=== PATIENT | male | born 1930 | race Caucasian/White ===

== ENCOUNTER → 2020-01-05 | Emergency (ER) | payer OTHER, MEDICARE, BC ==
[~2020-01-05] VITALS: Ht 170.2 cm; Wt 64.4 kg
[~2020-01-05] MED LIST: TETanus/Pertussis (Acell)/Diphther VAC/PF (Tdap-Adult) 0.5ml syringe IMVAC ONE
[2020-01-05 23:06] VITALS: BP 140/74
== END | disposition home or self-care (01) ==
LOC: ER 20:56
DX: S09.90XA Unspecified injury of head, initial encounter (principal); S00.01XA Abrasion of scalp, initial encounter; S50.312A Abrasion of left elbow, initial encounter; W19.XXXA Unspecified fall, initial encounter; Y93.89 Activity, other specified; Y92.89 Other specified places as the place of occurrence of the external cause; Y99.8 Other external cause status
CPT/HCPCS: 90471; 90715; 99284

== ENCOUNTER 2020-07-12 15:35 | Emergency (ER) | payer OTHER, MEDICARE, BC ==
[~2020-07-12] VITALS: Ht 170.2 cm; Wt 65.9 kg
[2020-07-12 15:45] VITALS: BP 133/68
[2020-07-12] MEDS ORDERED: LIDOcaine 1.5% w/epinephrine 1:200,000 5ml ampul IJ ONE (16:00)
[2020-07-12] MEDS ORDERED: LIDOcaine 1% W/epiNEPHrine 1:200,000 10ml vial IJ ONE (16:20)
== END 2020-07-12 16:56 | disposition home or self-care (01) ==
LOC: ER 15:35
DX: S01.01XA Laceration without foreign body of scalp, initial encounter (principal); S60.221A Contusion of right hand, initial encounter; G20 Parkinson's disease; W18.39XA Other fall on same level, initial encounter; Y93.89 Activity, other specified; Y92.89 Other specified places as the place of occurrence of the external cause; Y99.8 Other external cause status
CPT/HCPCS: 12002; 70450; 99284

== ENCOUNTER 2021-01-31 12:24 | Inpatient (IN) | payer OTHER, MEDICARE, BC ==
[~2021-01-31] VITALS: Ht 165.1 cm; Wt 67.0 kg
[2021-01-31] MEDS ORDERED: ondansetron/PF 4mg/2ml inj IV ONE (12:25)
[2021-01-31] MEDS ORDERED: morphine 4 MG/ML inj SYRINge IV ONE (12:25)
[2021-01-31 12:47] LABS: BASOPHILS % (AUTO) 0.4 % (0-1); EOSINOPHILS # (AUTO) 0.2 X10'3 (0-0.9); EOSINOPHILS % (AUTO) 2.3 % (0-6); HEMATOCRIT 39.8 % (42.0-52.0); HEMOGLOBIN 13.1 g/dl (14.0-17.9); LYMPHOCYTES % (AUTO) 14.3 % (21-51); MEAN CORPUSCULAR HEMOGLOBIN 31.1 PG (27.0-31.0); MEAN CORPUSCULAR VOLUME 94.4 FL (78-98); MEAN PLATELET VOLUME 7.6 FL (7.4-10.4); MONOCYTES # (AUTO) 0.5 X10'3 (0-0.9); MONOCYTES % (AUTO) 7.4 % (2-12); NEUTROPHILS # (AUTO) 5.3 X10'3 (1.8-7.7); NEUTROPHILS % (AUTO) 75.6 % (42-75); PLATELET COUNT 242 X10'3 (140-440); RED BLOOD COUNT 4.21 X10'6 (4.70-6.10); RED CELL DISTRIBUTION WIDTH 15.4 % (11.5-14.5)
[2021-01-31 13:07] LABS: ALANINE AMINOTRANSFERASE 11 U/L (12-78); ALBUMIN 3.2 G/DL (3.4-5.0); ALBUMIN/GLOBULIN RATIO 0.8 (1.1-1.5); ALKALINE PHOSPHATASE 88 IU/L (46-116); ANION GAP 7 (8-16); ASPARTATE AMINO TRANSFERASE 11 U/L (10-37); BILIRUBIN,TOTAL 0.5 MG/DL (0.1-1.0); BLOOD UREA NITROGEN 21 MG/DL (7-18); BUN/CREATININE RATIO 20.8 (5.4-32.0); CALCIUM 8.6 MG/DL (8.5-10.1); CHLORIDE 108 MMOL/L (99-107); CREATININE 1.01 MG/DL (0.60-1.10); GLUCOSE 97 MG/DL (70-104); POTASSIUM 4.1 MMOL/L (3.5-5.1); SODIUM 144 MMOL/L (135-145); TOTAL CARBON DIOXIDE 29.5 MMOL/L (24-32); TOTAL PROTEIN 7.4 G/DL (6.4-8.2); eGFR 70 ML/MIN
[2021-01-31] MEDS ORDERED: LIDOcaine 2% 10ml TOPICAL JELLY (Urojet) TP ONE (13:40)
[2021-01-31] MEDS ORDERED: potassium Cl 20 mEq SR tablet PO PRN ×2 (13:50)
[2021-01-31] MEDS ORDERED: magnesium 2GM in 50ml NS 50 ML IV PRN (13:50)
[2021-01-31] MEDS ORDERED: ipratropium/albuterol 3ml nebule NEB PRN (13:50)
[2021-01-31] MEDS ORDERED: magnesium Cl slow-release 64mg tablet PO PRN (13:50)
[2021-01-31] MEDS ORDERED: potassium Cl 40MEQ/1/2NS 520ml 520 ML IV PRN ×2 (13:50)
[2021-01-31] MEDS: normal saline 1000ml 1,000 ML IV SCH (13:50)
[2021-01-31] MEDS ORDERED: ondansetron/PF 4mg/2ml inj IV PRN (13:50)
[2021-01-31] MEDS ORDERED: magnesium 4gm in 100ml NS 100 ML IV PRN (13:50)
[2021-01-31 14:05] LABS: CLARITY,URINE CLEAR (Clear); COLOR,URINE YELLOW (Yellow); GLUCOSE, URINE NEGATIVE (Neg); KETONES,URINE NEGATIVE (Neg); LEUKOCYTE ESTERASE ,URINE NEGATIVE (Neg); NITRITES, URINE NEGATIVE (Neg); OCCULT BLOOD,URINE NEGATIVE (Neg); PH,URINE 6.5 (4.8-8.0); PROTEIN,URINE NEGATIVE (Neg); UROBILINOGEN,URINE 0.2 E.U/dL (0.2-1.0)
[2021-01-31 14:10] LABS: UA COLLECTION TYPE FOLEY CATH
[2021-01-31] MEDS ORDERED: FLUD0.1T PO (14:12)
[2021-01-31] MEDS ORDERED: CARB1TAB24 PO (14:12)
[2021-01-31] MEDS ORDERED: POTA99TA18 PO (14:12)
[2021-01-31] MEDS ORDERED: MELA10TA2 PO (14:12)
[2021-01-31] MEDS ORDERED: SENN-263 PO (14:12)
[2021-01-31] MEDS ORDERED: FERR-39 PO (14:12)
[2021-01-31] MEDS ORDERED: CYCL5TAB PO (14:12)
[2021-01-31] MEDS ORDERED: FLUT1DIS20 INH (14:12)
[2021-01-31] MEDS ORDERED: DOCU250C96 PO (14:12)
[2021-01-31] MEDS ORDERED: VIT1CAPS6 PO (14:12)
[2021-01-31] MEDS ORDERED: [UNRECOGNIZED DRUG - CODE] PO (14:12)
[2021-01-31] MEDS ORDERED: XAL0.005OS EACHEYE (14:12)
[2021-01-31] MEDS ORDERED: POLY119P2 PO (14:12)
[2021-01-31] MEDS ORDERED: cyclobenzaprine 10mg tablet PO PRN (14:25)
[2021-01-31] MEDS ORDERED: albuterol 2.5 MG/3 ML nebule NEB SCH (14:25)
[2021-01-31] MEDS: HYDROmorphone inj. 0.5 MG/0.5 ML DISP.SYRIN IV PRN ×2 (15:27→21:16)
--- NOTE | 2021-01-31 16:00 | NUR ---
Patient in room ORTHO 4014. I have received report from DEEDEE MISM and had the opportunity to ask questions and assume patient care.
[2021-01-31 17:01] VITALS: BP 116/64
[2021-01-31] MEDS: carbidoba-levodopa 25-100mg tablet PO SCH ×2 (17:13→21:15)
[2021-01-31 18:00] VITALS: BP 113/64
--- NOTE | 2021-01-31 18:12 | NUR ---
Problems reprioritized. Patient report given, questions answered & plan of care reviewed with TING MIMS.
[2021-01-31] MEDS: K and/or MAG REPLACEMENT MC SCH (20:00)
[2021-01-31] MEDS ORDERED: budesonide 0.5mg/2ml UD nebule IH SCH (20:00)
[2021-01-31] MEDS ORDERED: docusate sod 100mg capsule PO SCH (20:00)
[2021-01-31] MEDS: enoxaparin 40mg/0.4ml syringe SQ SCH (20:00)
[2021-01-31] MEDS: budesonide 0.5mg/2ml UD nebule IH SCH (20:59)
[2021-01-31] MEDS: albuterol 2.5 MG/3 ML nebule NEB SCH (21:00)
[2021-01-31] MEDS: sennosides 8.6mg tablet PO SCH (21:14)
[2021-01-31] MEDS: Melatonin 3mg tablet PO SCH (21:14)
[2021-01-31] MEDS: docusate sod 250mg capsule PO SCH (21:14)
[2021-01-31] MEDS: beta-carotene(A) w/C & E + minerals tab PO SCH (21:16)
[2021-01-31] MEDS: latanoprost 0.005% 2.5ml ophthalmic drops EACHEYE SCH (21:16)
[2021-01-31 22:00] VITALS: BP 115/58
[2021-02-01] VITALS (19 sets, daily range): BP systolic 93–150; BP diastolic 49–73
[2021-02-01] MEDS: HYDROmorphone inj. 0.5 MG/0.5 ML DISP.SYRIN IV PRN ×4 (01:42→23:21)
[2021-02-01] MEDS: normal saline 1000ml 1,000 ML IV SCH (02:28)
[2021-02-01] MEDS ORDERED: LORazepam 2 mg/ml vial IV ONE (06:20)
--- NOTE | 2021-02-01 06:30 | NUR ---
CONTACTED DR JAMESON REGARDING PT'S HR OF 120-140 AND AGITATION. RECEIVED ORDER FOR ATIVAN 1MG IV.
--- NOTE | 2021-02-01 06:40 | NUR ---
Patient in room ORTHO 4014. I have received report from Radha MIMS and had the opportunity to ask questions and assume patient care.
--- NOTE | 2021-02-01 06:41 | NUR ---
Patient very agitated, in AFIB with rates in the 140s at times. Dilaudid IV given for pain. Heart rate trending down, 2 liters of oxygen applied due to desaturating in the 80s. Tele called and stated patient was back in sinus rhythm, has no history afib.
--- NOTE | 2021-02-01 06:49 | NUR ---
Problems reprioritized. Patient report given, questions answered & plan of care reviewed with FELICITA GARCIA.
[2021-02-01] MEDS: albuterol 2.5 MG/3 ML nebule NEB SCH ×4 (07:00→19:12)
[2021-02-01 07:15] LABS: BASOPHILS % (AUTO) 0.2 % (0-1); EOSINOPHILS # (AUTO) 0.3 X10'3 (0-0.9); EOSINOPHILS % (AUTO) 2.2 % (0-6); HEMATOCRIT 38.3 % (42.0-52.0); HEMOGLOBIN 12.8 g/dl (14.0-17.9); LYMPHOCYTES # (AUTO) 0.8 X10'3 (1.1-4.8); LYMPHOCYTES % (AUTO) 6.9 % (21-51); MEAN CORPUSCULAR HEMOGLOBIN 30.9 PG (27.0-31.0); MEAN CORPUSCULAR HGB CONC 33.3 g/dL (33.0-36.5); MEAN CORPUSCULAR VOLUME 92.8 FL (78-98); MONOCYTES # (AUTO) 1.1 X10'3 (0-0.9); MONOCYTES % (AUTO) 9.8 % (2-12); NEUTROPHILS # (AUTO) 9.1 X10'3 (1.8-7.7); NEUTROPHILS % (AUTO) 80.9 % (42-75); PLATELET COUNT 215 X10'3 (140-440); RED BLOOD COUNT 4.13 X10'6 (4.70-6.10); RED CELL DISTRIBUTION WIDTH 15.4 % (11.5-14.5); WHITE BLOOD COUNT 11.2 X10'3 (4.5-11.0)
[2021-02-01] MEDS ORDERED: acetaminophen 1,000mg/100ml IV 100 ML IV PRN (07:15)
[2021-02-01] MEDS ORDERED: ondansetron/PF 4mg/2ml inj IV PRN (07:15)
[2021-02-01] MEDS ORDERED: meperidine/PF 25mg/ml syringe IV PRN ×2 (07:15)
[2021-02-01] MEDS ORDERED: hydrALAZINE 20mg/ml inj. IV PRN (07:15)
[2021-02-01] MEDS ORDERED: morphine 4 MG/ML inj SYRINge IV PRN (07:15)
[2021-02-01] MEDS ORDERED: ringers solution, lacted 1,000 ML IV SCH (07:15)
[2021-02-01] MEDS ORDERED: morphine 2 MG/ML inj. syringe IV PRN (07:15)
[2021-02-01] MEDS ORDERED: proCHLORperazine 10 MG/2 ml inj IV PRN (07:15)
[2021-02-01] MEDS ORDERED: labetalol 20mg/4ml (5mg/ml) syringe IV PRN (07:15)
--- NOTE | 2021-02-01 07:18 | NUR ---
Called Aicha MIMS in Recovery room to give report on the patient
--- NOTE | 2021-02-01 07:19 | NUR ---
Patient sent to OR in the bed with no complications. Darron Padilla is present at bedside and followed them downstairs.
[2021-02-01] MEDS ORDERED: fentaNYL/PF 50MCG/1 ML 2ML syringe ONE (07:28)
[2021-02-01] MEDS ORDERED: midazolam 1 mg/ML 2ml injection ONE (07:29)
[2021-02-01] MEDS ORDERED: LIDOcaine 1% (10mg/ml) 2ml vial ONE (07:29)
[2021-02-01] MEDS ORDERED: sevoflurane 250ml liquid IH ONE (07:31)
[2021-02-01 07:42] LABS: ALANINE AMINOTRANSFERASE 8 U/L (12-78); ALBUMIN 2.9 G/DL (3.4-5.0); ALBUMIN/GLOBULIN RATIO 0.8 (1.1-1.5); ALKALINE PHOSPHATASE 99 IU/L (46-116); ANION GAP 9 (8-16); ASPARTATE AMINO TRANSFERASE 14 U/L (10-37); BILIRUBIN,TOTAL 0.7 MG/DL (0.1-1.0); BLOOD UREA NITROGEN 21 MG/DL (7-18); BUN/CREATININE RATIO 23.6 (5.4-32.0); CALCIUM 8.2 MG/DL (8.5-10.1); CHLORIDE 109 MMOL/L (99-107); CREATININE 0.89 MG/DL (0.60-1.10); GLUCOSE 99 MG/DL (70-104); POTASSIUM 4.1 MMOL/L (3.5-5.1); SODIUM 142 MMOL/L (135-145); TOTAL PROTEIN 6.6 G/DL (6.4-8.2); eGFR 81 ML/MIN
[2021-02-01] MEDS: beta-carotene(A) w/C & E + minerals tab PO SCH ×2 (08:00→20:36)
[2021-02-01] MEDS: fludrocortisone acetate 0.1mg tablet PO SCH (08:00)
[2021-02-01] MEDS: polyethylene glycol 3350 17gm powd pack PO SCH (08:00)
[2021-02-01] MEDS: cholecalciferol (vitamin D3) 1,000 unit (25mcg) tablet PO SCH (08:00)
[2021-02-01] MEDS ORDERED: non-formulary drug (Potassium Gluconate 99 MG) PO SCH (08:00)
[2021-02-01] MEDS: ferrous sulfate 325mg tablet PO SCH (08:00)
[2021-02-01] MEDS: docusate sod 250mg capsule PO SCH ×2 (08:00→20:00)
[2021-02-01] MEDS: K and/or MAG REPLACEMENT MC SCH ×2 (08:00→20:00)
[2021-02-01] MEDS: carbidoba-levodopa 25-100mg tablet PO SCH ×4 (08:00→20:36)
[2021-02-01] MEDS: budesonide 0.5mg/2ml UD nebule IH SCH ×2 (08:14→19:12)
[2021-02-01] MEDS ORDERED: dexamethasone sod phosphate 4mg/ml inj. ONE (08:17)
[2021-02-01] MEDS ORDERED: ondansetron/PF 4mg/2ml inj ONE (08:17)
[2021-02-01] MEDS ORDERED: 0.9 % SODIUM CHLORIDE 10 ML VIAL ONE (08:17)
[2021-02-01] MEDS ORDERED: albumin (Human) 5% 250ml 250 ML IV ONE (08:17)
[2021-02-01] MEDS ORDERED: propofol inj 20 ML IV ONE (08:17)
[2021-02-01] MEDS ORDERED: ceFAZolin 1000mg inj ONE ×2 (08:17)
[2021-02-01] MEDS ORDERED: rocuronium 10mg/ml inj IV ONE (08:17)
[2021-02-01] MEDS ORDERED: ePHEDrine 50MG/ML INJ. ONE (08:17)
[2021-02-01] MEDS ORDERED: LIDOcaine 2% (20mg/ml) 5ml vial ONE (08:17)
[2021-02-01] MEDS ORDERED: neostigmine methylsulfate 1 MG/ML 10ml vial ONE (08:46)
[2021-02-01] MEDS ORDERED: glycopyrrolate 0.2mg/ml inj ONE (08:46)
[2021-02-01] MEDS ORDERED: phenylephrine 10mg/ml inj. ONE (08:52)
[2021-02-01] MEDS ORDERED: HYDROcodone/acetaminophen 10/325mg tab PO PRN (09:00)
[2021-02-01] MEDS: meperidine/PF 25mg/ml syringe IV PRN ×2 (09:13→09:23)
--- NOTE | 2021-02-01 09:37 | NUR ---
Received report from Cathi REYNA RN.
--- NOTE | 2021-02-01 10:07 | NUR ---
PATIENT HAS MET ALL CRITERIA FOR TRANSFER TO THE SURGICAL/DIVINE/PCU/ORTHO/ICU FLOOR. VSS. DRESSINGS INTACT. BED LOW, CALL LIGHT PRESENT AND 2 RAILS UP. RN PRESENT TO ACCEPT CARE OF PATIENT AND REPORT HAS BEEN CALLED. ALL QUESTIONS ANSWERED TO ACCEPTING RN. Addendum: 02/01/21 at 1015 by Kirby Jessica - FELICITA RN Amended: Links added.
--- NOTE | 2021-02-01 15:20 | NUR ---
PAGER ID: [phone] MESSAGE: [phone], Jose Daniel. Son provided me with med list from [facility] and his neurologist faxed me his most recent progress note which does say he is supposed to be on sinemet 25-100 QID and 50-200 ER at night time. leena [phone]
--- NOTE | 2021-02-01 15:22 | NUR ---
Spoke with son this morning about the patients sinemet dosage. He stated he recently saw his neurologist and that she wanted it increased. Son provided me with [facility] print out of medications and also Dr. Tan office faxed me his most recent progress note which has the correct sinemet dosages on it. Paged Dr. Miller regarding this and got the correct medications ordered.
[2021-02-01] MEDS: ceFAZolin/D5W- 1GM premix 50 ML IV SCH ×2 (15:36→23:21)
--- NOTE | 2021-02-01 16:52 | NUR ---
I was unable to give the patient his 1300 dose of sinemet due to the fact that he was so somulent post operatively. I ended up giving it to him at 1530, 1700 dose is due now and he is too somulent to take after just getting pain medications. He also had some difficulty swallowing and had coughed with water and his pills, speech therapy consult ordered.
--- NOTE | 2021-02-01 18:16 | NUR ---
Problems reprioritized. Patient report given, questions answered & plan of care reviewed with Pamella MIMS.
--- NOTE | 2021-02-01 18:45 | NUR ---
Patient in room ORTHO 4007. I have received report from Josie MIMS and had the opportunity to ask questions and assume patient care.
[2021-02-01] MEDS: sennosides 8.6mg tablet PO SCH (20:35)
[2021-02-01] MEDS: Melatonin 3mg tablet PO SCH (20:36)
[2021-02-01] MEDS: carbidopa/levodopa 50/200mg CR tablet PO SCH (20:36)
[2021-02-01] MEDS: enoxaparin 40mg/0.4ml syringe SQ SCH (20:36)
[2021-02-01] MEDS: latanoprost 0.005% 2.5ml ophthalmic drops EACHEYE SCH (20:37)
[2021-02-02] VITALS (14 sets, daily range): BP systolic 75–115; BP diastolic 45–65
[2021-02-02] MEDS ORDERED: digoxin 250mcg/ml 2ml ampule IV ONE ×3 (03:00→21:00)
--- NOTE | 2021-02-02 06:19 | NUR ---
Problems reprioritized. Patient report given, questions answered & plan of care reviewed with Josie MIMS.
--- NOTE | 2021-02-02 06:27 | NUR ---
Patient in room ORTHO 4007. I have received report from Pamella MIMS and had the opportunity to ask questions and assume patient care.
[2021-02-02 06:39] LABS: BASOPHILS % (AUTO) 0.3 % (0-1); EOSINOPHILS # (AUTO) 0.2 X10'3 (0-0.9); EOSINOPHILS % (AUTO) 1.6 % (0-6); HEMATOCRIT 31.4 % (42.0-52.0); HEMOGLOBIN 10.3 g/dl (14.0-17.9); LYMPHOCYTES # (AUTO) 0.8 X10'3 (1.1-4.8); LYMPHOCYTES % (AUTO) 7.1 % (21-51); MEAN CORPUSCULAR HGB CONC 32.7 g/dL (33.0-36.5); MEAN CORPUSCULAR VOLUME 94.8 FL (78-98); MEAN PLATELET VOLUME 7.8 FL (7.4-10.4); MONOCYTES # (AUTO) 1.2 X10'3 (0-0.9); MONOCYTES % (AUTO) 10.9 % (2-12); NEUTROPHILS # (AUTO) 8.9 X10'3 (1.8-7.7); NEUTROPHILS % (AUTO) 80.1 % (42-75); PLATELET COUNT 190 X10'3 (140-440); RED BLOOD COUNT 3.31 X10'6 (4.70-6.10); RED CELL DISTRIBUTION WIDTH 15.8 % (11.5-14.5); WHITE BLOOD COUNT 11.1 X10'3 (4.5-11.0)
[2021-02-02 06:57] LABS: ALANINE AMINOTRANSFERASE 6 U/L (12-78); ALBUMIN 2.4 G/DL (3.4-5.0); ALBUMIN/GLOBULIN RATIO 0.7 (1.1-1.5); ALKALINE PHOSPHATASE 76 IU/L (46-116); ANION GAP 9 (8-16); ASPARTATE AMINO TRANSFERASE 19 U/L (10-37); BILIRUBIN,TOTAL 0.7 MG/DL (0.1-1.0); BLOOD UREA NITROGEN 23 MG/DL (7-18); BUN/CREATININE RATIO 25.3 (5.4-32.0); CALCIUM 8.1 MG/DL (8.5-10.1); CHLORIDE 110 MMOL/L (99-107); CREATININE 0.91 MG/DL (0.60-1.10); GLUCOSE 102 MG/DL (70-104); MAGNESIUM 1.8 MG/DL (1.5-2.4); POTASSIUM 4.2 MMOL/L (3.5-5.1); SODIUM 144 MMOL/L (135-145); TOTAL CARBON DIOXIDE 24.7 MMOL/L (24-32); TOTAL PROTEIN 5.7 G/DL (6.4-8.2); eGFR 79 ML/MIN
[2021-02-02] MEDS: albuterol 2.5 MG/3 ML nebule NEB SCH ×5 (07:00→18:57)
[2021-02-02] MEDS: budesonide 0.5mg/2ml UD nebule IH SCH ×3 (07:47→18:57)
[2021-02-02] MEDS: K and/or MAG REPLACEMENT MC SCH ×2 (08:00→20:00)
[2021-02-02] MEDS: docusate sod 250mg capsule PO SCH ×2 (08:00→20:01)
[2021-02-02] MEDS: ceFAZolin/D5W- 1GM premix 50 ML IV SCH ×2 (08:38→15:59)
[2021-02-02] MEDS: cholecalciferol (vitamin D3) 1,000 unit (25mcg) tablet PO SCH (08:38)
[2021-02-02] MEDS: fludrocortisone acetate 0.1mg tablet PO SCH (08:38)
[2021-02-02] MEDS: carbidoba-levodopa 25-100mg tablet PO SCH ×4 (08:38→22:50)
[2021-02-02] MEDS: ferrous sulfate 325mg tablet PO SCH (08:38)
[2021-02-02] MEDS: beta-carotene(A) w/C & E + minerals tab PO SCH ×2 (08:38→19:39)
[2021-02-02] MEDS: polyethylene glycol 3350 17gm powd pack PO SCH (08:38)
[2021-02-02] MEDS: HYDROcodone/acetaminophen 5mg/325mg tablet PO PRN (09:12)
[2021-02-02] MEDS: fluticasone nasal spray 16GM bottle NS SCH (11:06)
--- NOTE | 2021-02-02 14:00 | NUR ---
Patient was calling out to get help because he spilt his water. When i helped him change his gown i realized his phototypesetting equipment monitor was off. Dr. Miller gave me orders 02/01 to keep the phototypesetting equipment monitor on, which i put an order in for. For some reason the heart monitor got taken off. When it was put back on the patient was noted to be in atrial fibrilation with rapid ventricular rate in the 150s-160s. Sent page to Dr. Miller and got orders for digoxin.
--- NOTE | 2021-02-02 14:54 | NUR ---
Nutrition Consult "elderly male, hx Parkinson's, eating poorly s/p hip surgery": Pt admit DX L hip fx s/p OR repair this admit, COPD, afib RVR, and Parkinson's currently AOx2/confused w/ hx memory issues past few years per EMR. PO ~25% avg initial clear liquid diet w/ swallowing issues per RN today advanced to full liquids w/ assistance at meals per FORMS ANALYST BSS recs. PO 25% first full liquid meal at lunch today per EMR. RD d/w RN; recommends Ensure Enlive ONS TIDWM for additional protein/kcals while on restrictive diet. Receiving routine bowel care, MVI, and vitamin D3 post-op. LBM 01/30. Will monitor for further nutrition intervention needs this admit. Rec: 1. continue full liquid diet per FORMS ANALYST recs; advance as medically indicated to regular per FORMS ANALYST/DO; encourage PO 2. Ensure Enlive TIDWM; encourage PO 3. MVI for wound healing 4. routine bowel care 5. scaled wt this admit; subsequent weekly wts Addendum: 02/02/21 at [address] Amended: Links added.
--- NOTE | 2021-02-02 14:57 | NUR ---
PAGER ID: [phone] MESSAGE: [phone] Jose Daniel, patient converted back into atrial fibrilation with a rate in the 140s. BP is 95/65. Josie [phone]
[2021-02-02] MEDS ORDERED: amiodarone 150mg/dext, iso-os 100 ML IV ONE (16:20)
[2021-02-02] MEDS: HYDROmorphone inj. 0.5 MG/0.5 ML DISP.SYRIN IV PRN (16:23)
--- NOTE | 2021-02-02 16:49 | NUR ---
Patient is to transfer to telemetry to be put on an amiodarone drip as he is hypotensive and still in atrial fib with RVR. Per nursing supervisor painting shipyard there are no beds available until after change of shift.
--- NOTE | 2021-02-02 17:03 | NUR ---
PAGER ID: [phone] MESSAGE: [phone], Jose Daniel METCALF total urine out for this shift is 360mls, just making the 30mls/hr his IVF were discontinued, do you want him on some?. He will go down to PCU after change of shift. leena [phone]
[2021-02-02] MEDS: normal saline 1000ml 1,000 ML IV SCH (17:05)
[2021-02-02] MEDS: lactose-reduced food (Ensure Enlive) - 237ml bottle PO SCH (18:00)
--- NOTE | 2021-02-02 18:15 | NUR ---
Patient in room ORTHO 4007. I have received report from Josie MIMS and had the opportunity to ask questions and assume patient care.
--- NOTE | 2021-02-02 18:31 | NUR ---
Problems reprioritized. Patient report given, questions answered & plan of care reviewed with Pamella MIMS.
--- NOTE | 2021-02-02 18:58 | NUR ---
Problems reprioritized. Patient report given, questions answered & plan of care reviewed with Giovanna MIMS pt transfer to tele.
--- NOTE | 2021-02-02 19:20 | NUR ---
Pt arrived via bed fr/OrthoNeuro in no acute distress. Bedside monitor set up and applied. Afib rate noted to be in the 130s to 150s, BP 101/57, O2 Sat: 96%, RR: 18.
--- NOTE | 2021-02-02 19:20 | NUR ---
Patient in room PCU 3023. I have received report from Pamella MIMS and had the opportunity to ask questions and assume patient care.
[2021-02-02] MEDS: HYDROcodone/acetaminophen 10/325mg tab PO PRN (19:40)
[2021-02-02] MEDS: enoxaparin 40mg/0.4ml syringe SQ SCH (19:41)
[2021-02-02] MEDS: amiodarone/D5 360MG/200ML BAG 200 ML IV SCH (20:33)
[2021-02-02] MEDS: sennosides 8.6mg tablet PO SCH (22:49)
[2021-02-02] MEDS: latanoprost 0.005% 2.5ml ophthalmic drops EACHEYE SCH (22:49)
[2021-02-02] MEDS: Melatonin 3mg tablet PO SCH (22:51)
[2021-02-02] MEDS: carbidopa/levodopa 50/200mg CR tablet PO SCH (22:53)
[2021-02-03] VITALS (14 sets, daily range): BP systolic 78–143; BP diastolic 45–111
[2021-02-03] MEDS: HYDROcodone/acetaminophen 10/325mg tab PO PRN (00:33)
[2021-02-03] MEDS: HYDROmorphone inj. 0.5 MG/0.5 ML DISP.SYRIN IV PRN (01:34)
[2021-02-03] MEDS: amiodarone/D5 360MG/200ML BAG 200 ML IV SCH ×2 (01:35→04:28)
[2021-02-03] MEDS ORDERED: digoxin 250mcg/ml 2ml ampule IV ONE (03:00)
[2021-02-03] MEDS: normal saline 1000ml 1,000 ML IV SCH ×2 (03:13→05:55)
--- NOTE | 2021-02-03 06:20 | NUR ---
Patient in room PCU 3023. I have received report from weight shifter RN and had the opportunity to ask questions and assume patient care.
[2021-02-03 07:08] LABS: BASOPHILS % (AUTO) 0.4 % (0-1); EOSINOPHILS # (AUTO) 0.6 X10'3 (0-0.9); EOSINOPHILS % (AUTO) 5.2 % (0-6); HEMATOCRIT 28.9 % (42.0-52.0); HEMOGLOBIN 9.5 g/dl (14.0-17.9); LYMPHOCYTES # (AUTO) 0.9 X10'3 (1.1-4.8); LYMPHOCYTES % (AUTO) 8.4 % (21-51); MEAN CORPUSCULAR HEMOGLOBIN 31.3 PG (27.0-31.0); MEAN CORPUSCULAR HGB CONC 32.9 g/dL (33.0-36.5); MEAN CORPUSCULAR VOLUME 95.1 FL (78-98); MEAN PLATELET VOLUME 8.3 FL (7.4-10.4); MONOCYTES # (AUTO) 0.9 X10'3 (0-0.9); MONOCYTES % (AUTO) 8.3 % (2-12); NEUTROPHILS # (AUTO) 8.5 X10'3 (1.8-7.7); NEUTROPHILS % (AUTO) 77.7 % (42-75); PLATELET COUNT 171 X10'3 (140-440); RED BLOOD COUNT 3.04 X10'6 (4.70-6.10); RED CELL DISTRIBUTION WIDTH 15.8 % (11.5-14.5)
--- NOTE | 2021-02-03 07:31 | NUR ---
Problems reprioritized. Patient report given, questions answered & plan of care reviewed with Ciro MIMS.
[2021-02-03 07:51] LABS: ALANINE AMINOTRANSFERASE 7 U/L (12-78); ALBUMIN 2.1 G/DL (3.4-5.0); ALBUMIN/GLOBULIN RATIO 0.6 (1.1-1.5); ALKALINE PHOSPHATASE 80 IU/L (46-116); ANION GAP 10 (8-16); ASPARTATE AMINO TRANSFERASE 40 U/L (10-37); BILIRUBIN,TOTAL 0.4 MG/DL (0.1-1.0); BLOOD UREA NITROGEN 22 MG/DL (7-18); BUN/CREATININE RATIO 22.4 (5.4-32.0); CALCIUM 7.5 MG/DL (8.5-10.1); CHLORIDE 109 MMOL/L (99-107); CREATININE 0.98 MG/DL (0.60-1.10); GLUCOSE 92 MG/DL (70-104); MAGNESIUM 1.7 MG/DL (1.5-2.4); POTASSIUM 4.2 MMOL/L (3.5-5.1); SODIUM 143 MMOL/L (135-145); TOTAL CARBON DIOXIDE 23.8 MMOL/L (24-32); TOTAL PROTEIN 5.5 G/DL (6.4-8.2); eGFR 72 ML/MIN
[2021-02-03] MEDS: budesonide 0.5mg/2ml UD nebule IH SCH ×2 (07:57→19:44)
[2021-02-03] MEDS: albuterol 2.5 MG/3 ML nebule NEB SCH ×4 (07:57→19:44)
[2021-02-03] MEDS: K and/or MAG REPLACEMENT MC SCH (08:00)
[2021-02-03] MEDS: polyethylene glycol 3350 17gm powd pack PO SCH (08:00)
[2021-02-03] MEDS: beta-carotene(A) w/C & E + minerals tab PO SCH (08:33)
[2021-02-03] MEDS: ferrous sulfate 325mg tablet PO SCH (08:33)
[2021-02-03] MEDS: cholecalciferol (vitamin D3) 1,000 unit (25mcg) tablet PO SCH (08:33)
[2021-02-03] MEDS: fludrocortisone acetate 0.1mg tablet PO SCH (08:34)
[2021-02-03] MEDS: carbidoba-levodopa 25-100mg tablet PO SCH ×3 (08:35→17:54)
[2021-02-03] MEDS: fluticasone nasal spray 16GM bottle NS SCH (08:36)
[2021-02-03] MEDS: docusate sod 250mg capsule PO SCH ×2 (08:36→23:05)
[2021-02-03] MEDS: lactose-reduced food (Ensure Enlive) - 237ml bottle PO SCH ×3 (08:36→17:44)
--- NOTE | 2021-02-03 17:22 | NUR ---
Per Gabriela lewismaintenance worker house trailer its ok for the son to visit after hours. States he will be here @1999.
--- NOTE | 2021-02-03 18:12 | NUR ---
Problems reprioritized. Patient report given, questions answered & plan of care reviewed with pile driver operator RN.
[2021-02-03] MEDS: Melatonin 3mg tablet PO SCH (22:58)
[2021-02-03] MEDS: amiodarone 200mg tablet PO SCH (22:59)
[2021-02-03] MEDS: latanoprost 0.005% 2.5ml ophthalmic drops EACHEYE SCH (23:04)
[2021-02-03] MEDS: carbidopa/levodopa 50/200mg CR tablet PO SCH (23:06)
[2021-02-04 06:00] VITALS: BP 143/68
--- NOTE | 2021-02-04 06:12 | NUR ---
Patient in room PCU 3023. I have received report from Anat and had the opportunity to ask questions and assume patient care.
[2021-02-04 06:35] LABS: BASOPHILS % (AUTO) 0 % (0-1); EOSINOPHILS # (AUTO) 0.3 X10'3 (0-0.9); EOSINOPHILS % (AUTO) 2.7 % (0-6); HEMATOCRIT 31.2 % (42.0-52.0); HEMOGLOBIN 10.4 g/dl (14.0-17.9); LYMPHOCYTES # (AUTO) 0.8 X10'3 (1.1-4.8); LYMPHOCYTES % (AUTO) 6.7 % (21-51); MEAN CORPUSCULAR HEMOGLOBIN 31.3 PG (27.0-31.0); MEAN CORPUSCULAR HGB CONC 33.3 g/dL (33.0-36.5); MEAN CORPUSCULAR VOLUME 93.8 FL (78-98); MEAN PLATELET VOLUME 8.7 FL (7.4-10.4); MONOCYTES % (AUTO) 8.7 % (2-12); NEUTROPHILS # (AUTO) 9.2 X10'3 (1.8-7.7); NEUTROPHILS % (AUTO) 81.9 % (42-75); PLATELET COUNT 198 X10'3 (140-440); RED BLOOD COUNT 3.33 X10'6 (4.70-6.10); RED CELL DISTRIBUTION WIDTH 15.2 % (11.5-14.5); WHITE BLOOD COUNT 11.2 X10'3 (4.5-11.0)
[2021-02-04 06:37] LABS: ALANINE AMINOTRANSFERASE 11 U/L (12-78); ALBUMIN 2.1 G/DL (3.4-5.0); ALBUMIN/GLOBULIN RATIO 0.5 (1.1-1.5); ALKALINE PHOSPHATASE 97 IU/L (46-116); ANION GAP 12 (8-16); ASPARTATE AMINO TRANSFERASE 72 U/L (10-37); BILIRUBIN,TOTAL 0.8 MG/DL (0.1-1.0); BLOOD UREA NITROGEN 23 MG/DL (7-18); BUN/CREATININE RATIO 22.8 (5.4-32.0); CALCIUM 8.2 MG/DL (8.5-10.1); CHLORIDE 108 MMOL/L (99-107); CREATININE 1.01 MG/DL (0.60-1.10); GLUCOSE 94 MG/DL (70-104); MAGNESIUM 1.9 MG/DL (1.5-2.4); POTASSIUM 3.6 MMOL/L (3.5-5.1); SODIUM 141 MMOL/L (135-145); TOTAL CARBON DIOXIDE 21.1 MMOL/L (24-32); TOTAL PROTEIN 6.4 G/DL (6.4-8.2); eGFR 70 ML/MIN
--- NOTE | 2021-02-04 07:30 | NUR ---
Walked into patient room at 0620 and discovered Amiodarone drip empty on standby. rotary machine operator RN Anat made aware. Unable to pull drip from the [employer]. I notified pharmacy. Pt now on PO Amiodarone. Current rhythm SR w/ PACs, rate [address] Miller made aware.
[2021-02-04] MEDS: cholecalciferol (vitamin D3) 1,000 unit (25mcg) tablet PO SCH (07:58)
[2021-02-04] MEDS: ferrous sulfate 325mg tablet PO SCH (07:58)
[2021-02-04] MEDS: beta-carotene(A) w/C & E + minerals tab PO SCH ×3 (07:58→20:10)
[2021-02-04] MEDS: docusate sod 250mg capsule PO SCH ×2 (07:58→20:00)
[2021-02-04] MEDS: fludrocortisone acetate 0.1mg tablet PO SCH (07:58)
[2021-02-04] MEDS: carbidoba-levodopa 25-100mg tablet PO SCH ×4 (07:58→16:56)
[2021-02-04] MEDS: amiodarone 200mg tablet PO SCH ×2 (07:58→20:10)
[2021-02-04] MEDS: lactose-reduced food (Ensure Enlive) - 237ml bottle PO SCH ×3 (07:58→17:06)
[2021-02-04] MEDS: fluticasone nasal spray 16GM bottle NS SCH (07:59)
[2021-02-04] MEDS: polyethylene glycol 3350 17gm powd pack PO SCH (07:59)
[2021-02-04] MEDS: K and/or MAG REPLACEMENT MC SCH ×2 (08:00→20:00)
[2021-02-04] MEDS: budesonide 0.5mg/2ml UD nebule IH SCH ×2 (08:17→20:32)
[2021-02-04] MEDS: albuterol 2.5 MG/3 ML nebule NEB SCH ×2 (08:17→12:14)
[2021-02-04] MEDS: HYDROcodone/acetaminophen 10/325mg tab PO PRN ×2 (08:18→20:11)
[2021-02-04 11:00] VITALS: BP 114/74
[2021-02-04] MEDS ORDERED: ondansetron 4mg rapidly disintigrating tab PO PRN (11:15)
[2021-02-04 15:00] VITALS: BP 107/56
[2021-02-04] MEDS: ipratropium/albuterol 3ml nebule NEB SCH ×2 (15:59→20:31)
[2021-02-04 18:00] VITALS: BP 116/84
--- NOTE | 2021-02-04 18:57 | NUR ---
Report given to Pamella MIMS
[2021-02-04 20:00] VITALS: BP 121/75
[2021-02-04] MEDS: sennosides 8.6mg tablet PO SCH ×2 (20:09→21:00)
[2021-02-04] MEDS: Melatonin 3mg tablet PO SCH (20:10)
[2021-02-04] MEDS: enoxaparin 40mg/0.4ml syringe SQ SCH (20:12)
[2021-02-04 22:00] VITALS: BP_SYST 110; BP_SYST 93; BP_DIAS 49; BP_DIAS 72
[2021-02-05] VITALS (7 sets, daily range): BP systolic 93–127; BP diastolic 51–65
[2021-02-05] MEDS: carbidoba-levodopa 25-100mg tablet PO SCH ×5 (01:21→20:32)
[2021-02-05] MEDS: latanoprost 0.005% 2.5ml ophthalmic drops EACHEYE SCH ×2 (01:22→20:32)
[2021-02-05] MEDS: carbidopa/levodopa 50/200mg CR tablet PO SCH ×2 (01:37→20:33)
[2021-02-05] MEDS: ipratropium/albuterol 3ml nebule NEB SCH ×4 (02:20→21:51)
--- NOTE | 2021-02-05 06:45 | NUR ---
Patient in room PCU 3023. I have received report from group sales manager RN and had the opportunity to ask questions and assume patient care.
[2021-02-05 06:46] LABS: ALANINE AMINOTRANSFERASE 8 U/L (12-78); ALBUMIN/GLOBULIN RATIO 0.5 (1.1-1.5); ALKALINE PHOSPHATASE 84 IU/L (46-116); ANION GAP 10 (8-16); ASPARTATE AMINO TRANSFERASE 44 U/L (10-37); BILIRUBIN,TOTAL 0.8 MG/DL (0.1-1.0); BLOOD UREA NITROGEN 26 MG/DL (7-18); BUN/CREATININE RATIO 28.9 (5.4-32.0); CALCIUM 8.3 MG/DL (8.5-10.1); CHLORIDE 110 MMOL/L (99-107); GLUCOSE 91 MG/DL (70-104); MAGNESIUM 1.9 MG/DL (1.5-2.4); POTASSIUM 3.8 MMOL/L (3.5-5.1); SODIUM 144 MMOL/L (135-145); TOTAL CARBON DIOXIDE 23.9 MMOL/L (24-32); TOTAL PROTEIN 5.7 G/DL (6.4-8.2); eGFR 80 ML/MIN
--- NOTE | 2021-02-05 06:50 | NUR ---
Problems reprioritized. Patient report given, questions answered & plan of care reviewed with FELICITA Doshi.
[2021-02-05 07:00] LABS: BASOPHILS % (AUTO) 0.3 % (0-1); EOSINOPHILS # (AUTO) 0.5 X10'3 (0-0.9); EOSINOPHILS % (AUTO) 5.8 % (0-6); HEMATOCRIT 27.3 % (42.0-52.0); HEMOGLOBIN 9.3 g/dl (14.0-17.9); LYMPHOCYTES # (AUTO) 0.8 X10'3 (1.1-4.8); MEAN CORPUSCULAR HEMOGLOBIN 31.7 PG (27.0-31.0); MEAN CORPUSCULAR HGB CONC 34.2 g/dL (33.0-36.5); MEAN CORPUSCULAR VOLUME 92.6 FL (78-98); MEAN PLATELET VOLUME 8.1 FL (7.4-10.4); MONOCYTES # (AUTO) 0.8 X10'3 (0-0.9); MONOCYTES % (AUTO) 8.6 % (2-12); NEUTROPHILS # (AUTO) 6.7 X10'3 (1.8-7.7); NEUTROPHILS % (AUTO) 76.3 % (42-75); PLATELET COUNT 200 X10'3 (140-440); RED BLOOD COUNT 2.95 X10'6 (4.70-6.10); RED CELL DISTRIBUTION WIDTH 15.5 % (11.5-14.5); WHITE BLOOD COUNT 8.8 X10'3 (4.5-11.0)
[2021-02-05] MEDS: K and/or MAG REPLACEMENT MC SCH ×2 (08:00→20:00)
[2021-02-05] MEDS: polyethylene glycol 3350 17gm powd pack PO SCH (08:05)
[2021-02-05] MEDS: ferrous sulfate 325mg tablet PO SCH (08:05)
[2021-02-05] MEDS: fludrocortisone acetate 0.1mg tablet PO SCH (08:05)
[2021-02-05] MEDS: docusate sod 250mg capsule PO SCH ×2 (08:05→20:42)
[2021-02-05] MEDS: fluticasone nasal spray 16GM bottle NS SCH (08:05)
[2021-02-05] MEDS: amiodarone 200mg tablet PO SCH ×2 (08:05→20:33)
[2021-02-05] MEDS: beta-carotene(A) w/C & E + minerals tab PO SCH ×2 (08:05→20:32)
[2021-02-05] MEDS: cholecalciferol (vitamin D3) 1,000 unit (25mcg) tablet PO SCH (08:05)
[2021-02-05] MEDS: lactose-reduced food (Ensure Enlive) - 237ml bottle PO SCH ×3 (08:06→17:07)
[2021-02-05] MEDS: budesonide 0.5mg/2ml UD nebule IH SCH ×2 (09:18→21:51)
[2021-02-05] MEDS: HYDROcodone/acetaminophen 5mg/325mg tablet PO PRN (12:37)
--- NOTE | 2021-02-05 18:00 | NUR ---
Patient in room PCU 3023. I have received report from Chandni and had the opportunity to ask questions and assume patient care.
--- NOTE | 2021-02-05 18:37 | NUR ---
Report given to fast food shift lead RN.
[2021-02-05] MEDS: enoxaparin 40mg/0.4ml syringe SQ SCH (20:00)
[2021-02-05] MEDS: Melatonin 3mg tablet PO SCH (20:42)
[2021-02-05] MEDS: sennosides 8.6mg tablet PO SCH (21:00)
[2021-02-05] MEDS: acetaminophen 325mg tablet PO PRN (22:36)
[2021-02-06 02:00] VITALS: BP 118/50
[2021-02-06] MEDS: ipratropium/albuterol 3ml nebule NEB SCH ×4 (02:48→21:30)
[2021-02-06 06:00] VITALS: BP 106/53
--- NOTE | 2021-02-06 06:22 | NUR ---
Problems reprioritized. Patient report given, questions answered & plan of care reviewed with Chandni.
--- NOTE | 2021-02-06 06:58 | NUR ---
Received report from Janey MIMS.
[2021-02-06] MEDS: K and/or MAG REPLACEMENT MC SCH ×2 (08:00→20:00)
[2021-02-06] MEDS: lactose-reduced food (Ensure Enlive) - 237ml bottle PO SCH ×3 (08:00→17:37)
[2021-02-06] MEDS: fluticasone nasal spray 16GM bottle NS SCH (08:00)
[2021-02-06] MEDS: budesonide 0.5mg/2ml UD nebule IH SCH ×2 (09:10→21:30)
[2021-02-06] MEDS: ferrous sulfate 325mg tablet PO SCH (09:18)
[2021-02-06] MEDS: beta-carotene(A) w/C & E + minerals tab PO SCH ×2 (09:18→19:39)
[2021-02-06] MEDS: docusate sod 250mg capsule PO SCH ×3 (09:18→22:02)
[2021-02-06] MEDS: cholecalciferol (vitamin D3) 1,000 unit (25mcg) tablet PO SCH (09:18)
[2021-02-06] MEDS: carbidoba-levodopa 25-100mg tablet PO SCH ×4 (09:19→22:03)
[2021-02-06] MEDS: fludrocortisone acetate 0.1mg tablet PO SCH (09:19)
[2021-02-06] MEDS: amiodarone 200mg tablet PO SCH ×2 (09:19→19:39)
[2021-02-06] MEDS: polyethylene glycol 3350 17gm powd pack PO SCH (09:19)
[2021-02-06 11:00] VITALS: BP 122/45
--- NOTE | 2021-02-06 11:03 | NUR ---
Reassessment: Pt continues on Full liquid diet w/ ONS TID. PO intake remains low, avg 21% x 9 meals and 41% x 9 ONS not meeting needs. Pt w/ inadequate intake since admission. Discussed w/ RN that pt may need a f/u ST eval to see if pt can advance past liquids or if pt may need supplemental nutrition support to meet nutrient needs if within plan of care. LBM 01/31 receiving routine bowel care. Will continue to monitor. Rec: 1. continue full liquid diet per RETAIL ACCOUNT SPECIALIST recs; advance as medically indicated to regular per RETAIL ACCOUNT SPECIALIST/DO; encourage PO 2. Ensure Enlive TIDWM; encourage PO 3. MVI for wound healing 4. routine bowel care 5. scaled wt this admit; subsequent weekly wts 6. If pt continues w/ inadequate intake and unable to safely advance diet, may consider TF if within plan of care Addendum: 02/06/21 at [address] Amended: Links added.
[2021-02-06 15:00] VITALS: BP 132/100
[2021-02-06] MEDS: HYDROcodone/acetaminophen 10/325mg tab PO PRN (15:37)
[2021-02-06 18:00] VITALS: BP 147/72
--- NOTE | 2021-02-06 18:04 | NUR ---
Report given to industrial insulator RN.
[2021-02-06] MEDS: enoxaparin 40mg/0.4ml syringe SQ SCH (19:39)
[2021-02-06] MEDS: latanoprost 0.005% 2.5ml ophthalmic drops EACHEYE SCH ×2 (21:00→22:03)
--- NOTE | 2021-02-06 21:12 | NUR ---
Patient in room PCU 3023. I have received report from FELICITA Tapia and had the opportunity to ask questions and assume patient care
[2021-02-06] MEDS: carbidopa/levodopa 50/200mg CR tablet PO SCH (22:02)
[2021-02-06] MEDS: Melatonin 3mg tablet PO SCH (22:02)
[2021-02-06] MEDS: sennosides 8.6mg tablet PO SCH (22:03)
[2021-02-07] MEDS: ipratropium/albuterol 3ml nebule NEB SCH ×4 (03:00→20:52)
[2021-02-07 06:00] VITALS: BP 113/53
[2021-02-07] MEDS: lactose-reduced food (Ensure Enlive) - 237ml bottle PO SCH ×3 (08:00→18:00)
[2021-02-07] MEDS: K and/or MAG REPLACEMENT MC SCH ×2 (08:00→20:00)
[2021-02-07] MEDS: budesonide 0.5mg/2ml UD nebule IH SCH ×2 (09:25→20:52)
[2021-02-07] MEDS: ferrous sulfate 325mg tablet PO SCH (09:33)
[2021-02-07] MEDS: polyethylene glycol 3350 17gm powd pack PO SCH ×2 (09:33→09:54)
[2021-02-07] MEDS: amiodarone 200mg tablet PO SCH ×2 (09:33→19:32)
[2021-02-07] MEDS: carbidopa/levodopa 50/200mg CR tablet PO SCH (09:34)
[2021-02-07] MEDS: fluticasone nasal spray 16GM bottle NS SCH (09:34)
[2021-02-07] MEDS: beta-carotene(A) w/C & E + minerals tab PO SCH ×2 (09:34→19:31)
[2021-02-07] MEDS: cholecalciferol (vitamin D3) 1,000 unit (25mcg) tablet PO SCH (09:34)
[2021-02-07] MEDS: docusate sod 250mg capsule PO SCH ×2 (09:34→19:31)
[2021-02-07] MEDS: fludrocortisone acetate 0.1mg tablet PO SCH (10:05)
[2021-02-07] MEDS: carbidoba-levodopa 25-100mg tablet PO SCH ×2 (10:05→14:59)
[2021-02-07 11:00] VITALS: BP 100/47
[2021-02-07] MEDS ORDERED: furosemide 20 MG/2 ML vial IV ONE (13:00)
[2021-02-07 15:00] VITALS: BP 114/58
[2021-02-07] MEDS: levoFLOXACIN-Levaquin 500mg/D5 100 ML IV SCH (15:00)
[2021-02-07 18:00] VITALS: BP 103/61
[2021-02-07] MEDS: enoxaparin 40mg/0.4ml syringe SQ SCH (19:31)
[2021-02-07] MEDS: sennosides 8.6mg tablet PO SCH (20:32)
[2021-02-07] MEDS: latanoprost 0.005% 2.5ml ophthalmic drops EACHEYE SCH (20:32)
[2021-02-07] MEDS: Melatonin 3mg tablet PO SCH (20:32)
[2021-02-07 22:00] VITALS: BP 122/54
[2021-02-07] MEDS: acetaminophen 325mg tablet PO PRN (22:58)
[2021-02-08 02:00] VITALS: BP 119/65
[2021-02-08] MEDS: ipratropium/albuterol 3ml nebule NEB SCH ×6 (02:36→23:00)
[2021-02-08] MEDS: carbidoba-levodopa 25-100mg tablet PO SCH ×5 (02:41→20:15)
--- NOTE | 2021-02-08 06:31 | NUR ---
Problems reprioritized. Patient report given, questions answered & plan of care reviewed with FELICITA Friedman.
--- NOTE | 2021-02-08 06:31 | NUR ---
Patient in room PCU 3023. I have received report from FELICITA Harden and had the opportunity to ask questions and assume patient care.
[2021-02-08] MEDS: K and/or MAG REPLACEMENT MC SCH ×2 (08:00→20:00)
[2021-02-08] MEDS: fluticasone nasal spray 16GM bottle NS SCH (08:10)
[2021-02-08] MEDS: furosemide 20 MG/2 ML vial IV SCH (08:10)
[2021-02-08] MEDS: cholecalciferol (vitamin D3) 1,000 unit (25mcg) tablet PO SCH (08:12)
[2021-02-08] MEDS: ferrous sulfate 325mg tablet PO SCH (08:12)
[2021-02-08] MEDS: amiodarone 200mg tablet PO SCH ×2 (08:12→19:57)
[2021-02-08] MEDS: fludrocortisone acetate 0.1mg tablet PO SCH (08:13)
[2021-02-08] MEDS: beta-carotene(A) w/C & E + minerals tab PO SCH ×2 (08:13→19:58)
[2021-02-08] MEDS: docusate sod 250mg capsule PO SCH ×2 (08:15→19:58)
[2021-02-08] MEDS: levoFLOXACIN-Levaquin 500mg/D5 100 ML IV SCH (08:15)
[2021-02-08] MEDS: lactose-reduced food (Ensure Enlive) - 237ml bottle PO SCH ×3 (08:15→18:03)
[2021-02-08] MEDS: HYDROmorphone inj. 0.5 MG/0.5 ML DISP.SYRIN IV PRN (08:25)
--- NOTE | 2021-02-08 08:48 | NUR ---
Paged ST d/t ongoing dysphagia: Jose Daniel Gonzalez [phone] pt sounds congested w/dysphagia. ST juan daniel jacinto says complete. Are thin liquids appropriate for this pt? Felix [phone]
[2021-02-08] MEDS: budesonide 0.5mg/2ml UD nebule IH SCH (09:00)
--- NOTE | 2021-02-08 12:16 | NUR ---
MORNING SVN TRIAGED. THERAPIST NOT AVAILABLE
[2021-02-08] MEDS: HYDROcodone/acetaminophen 5mg/325mg tablet PO PRN (14:46)
[2021-02-08 18:00] VITALS: BP 133/63
--- NOTE | 2021-02-08 18:41 | NUR ---
Problems reprioritized. Patient report given, questions answered & plan of care reviewed with FELICITA Harden.
[2021-02-08] MEDS: lactobacillus rhamnosus 10,000 MMU CELLS/CAPSULE PO SCH (19:58)
[2021-02-08] MEDS: enoxaparin 40mg/0.4ml syringe SQ SCH (19:59)
[2021-02-08] MEDS: sennosides 8.6mg tablet PO SCH (20:14)
[2021-02-08] MEDS: Melatonin 3mg tablet PO SCH (20:14)
[2021-02-08] MEDS: carbidopa/levodopa 50/200mg CR tablet PO SCH (20:15)
[2021-02-08] MEDS: latanoprost 0.005% 2.5ml ophthalmic drops EACHEYE SCH (20:28)
[2021-02-08 22:00] VITALS: BP 128/60
[2021-02-09 02:00] VITALS: BP 128/66
[2021-02-09] MEDS: ipratropium/albuterol 3ml nebule NEB SCH ×6 (03:07→23:39)
--- NOTE | 2021-02-09 06:23 | NUR ---
Problems reprioritized. Patient report given, questions answered & plan of care reviewed with FELICITA Friedman.
--- NOTE | 2021-02-09 06:31 | NUR ---
Patient in room PCU 3023. I have received report from FELICITA Ricahrd and had the opportunity to ask questions and assume patient care.
[2021-02-09 07:00] VITALS: BP 126/56
[2021-02-09] MEDS: budesonide 0.5mg/2ml UD nebule IH SCH ×2 (07:36→20:01)
[2021-02-09] MEDS: polyethylene glycol 3350 17gm powd pack PO SCH (07:58)
[2021-02-09] MEDS: fluticasone nasal spray 16GM bottle NS SCH (07:59)
[2021-02-09] MEDS: carbidoba-levodopa 25-100mg tablet PO SCH ×4 (08:00→22:17)
[2021-02-09] MEDS: lactose-reduced food (Ensure Enlive) - 237ml bottle PO SCH ×3 (08:00→18:00)
[2021-02-09] MEDS: K and/or MAG REPLACEMENT MC SCH ×2 (08:00→20:00)
[2021-02-09] MEDS ORDERED: azithromycin/NS 500mg/250ml 250 ML IV SCH (08:00)
[2021-02-09] MEDS: cholecalciferol (vitamin D3) 1,000 unit (25mcg) tablet PO SCH (08:01)
[2021-02-09] MEDS: lactobacillus rhamnosus 10,000 MMU CELLS/CAPSULE PO SCH ×2 (08:02→22:14)
[2021-02-09] MEDS: beta-carotene(A) w/C & E + minerals tab PO SCH ×2 (08:03→22:15)
[2021-02-09] MEDS: ferrous sulfate 325mg tablet PO SCH (08:04)
[2021-02-09] MEDS: docusate sod 250mg capsule PO SCH ×2 (08:06→22:15)
[2021-02-09] MEDS: amiodarone 200mg tablet PO SCH ×2 (08:06→22:32)
[2021-02-09] MEDS: furosemide 20 MG/2 ML vial IV SCH (08:14)
[2021-02-09] MEDS: levoFLOXACIN-Levaquin 500mg/D5 100 ML IV SCH (08:18)
[2021-02-09] MEDS: HYDROcodone/acetaminophen 10/325mg tab PO PRN ×2 (08:30→22:16)
[2021-02-09 10:58] LABS: BASOPHILS % (AUTO) 0.2 % (0-1); EOSINOPHILS % (AUTO) 0.3 % (0-6); HEMATOCRIT 29.6 % (42.0-52.0); HEMOGLOBIN 9.9 g/dl (14.0-17.9); LYMPHOCYTES # (AUTO) 0.4 X10'3 (1.1-4.8); LYMPHOCYTES % (AUTO) 6.2 % (21-51); MEAN CORPUSCULAR HEMOGLOBIN 31.1 PG (27.0-31.0); MEAN CORPUSCULAR HGB CONC 33.4 g/dL (33.0-36.5); MEAN CORPUSCULAR VOLUME 93.2 FL (78-98); MEAN PLATELET VOLUME 6.9 FL (7.4-10.4); MONOCYTES # (AUTO) 0.4 X10'3 (0-0.9); MONOCYTES % (AUTO) 6.5 % (2-12); NEUTROPHILS # (AUTO) 5.4 X10'3 (1.8-7.7); NEUTROPHILS % (AUTO) 86.8 % (42-75); PLATELET COUNT 347 X10'3 (140-440); RED BLOOD COUNT 3.17 X10'6 (4.70-6.10); WHITE BLOOD COUNT 6.3 X10'3 (4.5-11.0)
[2021-02-09 11:00] VITALS: BP 101/44
[2021-02-09 11:00] LABS: ALBUMIN 2.1 G/DL (3.4-5.0); ANION GAP 9 (8-16); BLOOD UREA NITROGEN 33 MG/DL (7-18); BUN/CREATININE RATIO 32.7 (5.4-32.0); CALCIUM 8.3 MG/DL (8.5-10.1); CHLORIDE 103 MMOL/L (99-107); CREATININE 1.01 MG/DL (0.60-1.10); GLUCOSE 104 MG/DL (70-104); POTASSIUM 3.3 MMOL/L (3.5-5.1); SODIUM 142 MMOL/L (135-145); TOTAL CARBON DIOXIDE 29.7 MMOL/L (24-32); eGFR 70 ML/MIN
--- NOTE | 2021-02-09 11:02 | NUR ---
Reassessment: Pt A/O x 2 and confused per physical assessment. S/p f/u BSS today with ST recs diet advancement to pureed food with nectar thick liquids. Lunch to be the first meal since texture advancement. Pt previously with 25-50% PO intake on full liquid diet with fluctuating PO intake of ONS, overall averaging 50%. LBM 02/03, receiving routine bowel care. D/w dietary to send nectar thick prune juice with next meal to further assist with bowel regularity. Will continue to follow closely and monitor need for additional nutrition intervention pending trends in PO intake with texture upgrade. Rec: 1. Continue pureed diet with nectar thick liquids per ST recs; advance as medically indicated to regular; encourage PO intake 2. Ensure Enlive TIDWM 3. MVM for wound healing 4. Routine bowel care 5. Scaled wt this admit; subsequent weekly wts 6. If pt continues w/ inadequate intake and unable to safely advance diet, may consider TF if within plan of care Addendum: 02/09/21 at [address] Amended: Links added.
--- NOTE | 2021-02-09 11:05 | NUR ---
[place] administered at 0830. Bar code torn and would not scan. Inadvertently left undocumented and added in later.
[2021-02-09] MEDS: fludrocortisone acetate 0.1mg tablet PO SCH (12:27)
[2021-02-09 15:00] VITALS: BP 122/60
[2021-02-09 18:00] VITALS: BP 127/60
--- NOTE | 2021-02-09 18:45 | NUR ---
Problems reprioritized. Patient report given, questions answered & plan of care reviewed with Shalonda MIMS.
--- NOTE | 2021-02-09 18:45 | NUR ---
Patient in room PCU 3023. I have received report from BOB MIMS and had the opportunity to ask questions and assume patient care. Addendum: 02/09/21 at 1845 by Shalonda Dill RN Amended: Links added.
[2021-02-09 22:00] VITALS: BP 132/53
[2021-02-09] MEDS: Melatonin 3mg tablet PO SCH (22:14)
[2021-02-09] MEDS: carbidopa/levodopa 50/200mg CR tablet PO SCH (22:16)
[2021-02-09] MEDS: latanoprost 0.005% 2.5ml ophthalmic drops EACHEYE SCH (22:18)
[2021-02-09] MEDS: enoxaparin 40mg/0.4ml syringe SQ SCH (22:20)
[2021-02-09] MEDS: sennosides 8.6mg tablet PO SCH (22:33)
[2021-02-10] VITALS (7 sets, daily range): BP systolic 82–125; BP diastolic 47–71
[2021-02-10] MEDS ORDERED: potassium Cl 40MEQ/1/2NS 520ml 520 ML IV PRN (00:25)
[2021-02-10] MEDS ORDERED: potassium Cl 20 mEq SR tablet PO PRN ×2 (01:35)
[2021-02-10] MEDS ORDERED: magnesium Cl slow-release 64mg tablet PO PRN (01:35)
[2021-02-10] MEDS ORDERED: magnesium 4gm in 100ml NS 100 ML IV PRN (01:35)
[2021-02-10] MEDS: ipratropium/albuterol 3ml nebule NEB SCH ×6 (04:48→22:54)
--- NOTE | 2021-02-10 06:39 | NUR ---
Problems reprioritized. Patient report given, questions answered & plan of care reviewed with BOB MIMS. Addendum: 02/10/21 at 0639 by Shalonda Dill RN Amended: Links added.
--- NOTE | 2021-02-10 06:39 | NUR ---
Patient in room PCU 3023. I have received report from FELICITA Liz and had the opportunity to ask questions and assume patient care.
[2021-02-10 06:40] LABS: MAGNESIUM 2.3 MG/DL (1.5-2.4); POTASSIUM 3.3 MMOL/L (3.5-5.1)
[2021-02-10] MEDS: HYDROcodone/acetaminophen 10/325mg tab PO PRN ×3 (07:33→21:52)
[2021-02-10] MEDS: docusate sod 250mg capsule PO SCH ×2 (07:34→20:00)
[2021-02-10] MEDS: beta-carotene(A) w/C & E + minerals tab PO SCH ×2 (07:34→20:00)
[2021-02-10] MEDS: fluticasone nasal spray 16GM bottle NS SCH (07:34)
[2021-02-10] MEDS: ferrous sulfate 325mg tablet PO SCH (07:35)
[2021-02-10] MEDS: amiodarone 200mg tablet PO SCH ×2 (07:35→21:41)
[2021-02-10] MEDS: cholecalciferol (vitamin D3) 1,000 unit (25mcg) tablet PO SCH (07:35)
[2021-02-10] MEDS: carbidoba-levodopa 25-100mg tablet PO SCH ×4 (07:36→21:39)
[2021-02-10] MEDS: lactobacillus rhamnosus 10,000 MMU CELLS/CAPSULE PO SCH ×2 (07:36→20:00)
[2021-02-10] MEDS: fludrocortisone acetate 0.1mg tablet PO SCH (07:36)
[2021-02-10] MEDS: budesonide 0.5mg/2ml UD nebule IH SCH ×2 (07:49→19:21)
[2021-02-10] MEDS: lactose-reduced food (Ensure Enlive) - 237ml bottle PO SCH ×3 (07:52→18:00)
[2021-02-10] MEDS: K and/or MAG REPLACEMENT MC SCH ×2 (08:00→20:00)
[2021-02-10] MEDS: polyethylene glycol 3350 17gm powd pack PO SCH (08:00)
[2021-02-10] MEDS ORDERED: furosemide 20MG tablet PO SCH ×2 (08:55→09:07)
[2021-02-10 09:06] LABS: BASOPHILS % (AUTO) 0.3 % (0-1); EOSINOPHILS % (AUTO) 0.5 % (0-6); HEMATOCRIT 28.6 % (42.0-52.0); HEMOGLOBIN 9.8 g/dl (14.0-17.9); LYMPHOCYTES # (AUTO) 0.6 X10'3 (1.1-4.8); LYMPHOCYTES % (AUTO) 10.2 % (21-51); MEAN CORPUSCULAR HEMOGLOBIN 31.3 PG (27.0-31.0); MEAN CORPUSCULAR HGB CONC 34.2 g/dL (33.0-36.5); MEAN CORPUSCULAR VOLUME 91.5 FL (78-98); MEAN PLATELET VOLUME 6.8 FL (7.4-10.4); MONOCYTES # (AUTO) 0.4 X10'3 (0-0.9); MONOCYTES % (AUTO) 7.1 % (2-12); NEUTROPHILS # (AUTO) 4.4 X10'3 (1.8-7.7); NEUTROPHILS % (AUTO) 81.9 % (42-75); PLATELET COUNT 361 X10'3 (140-440); RED BLOOD COUNT 3.13 X10'6 (4.70-6.10); RED CELL DISTRIBUTION WIDTH 14.9 % (11.5-14.5); WHITE BLOOD COUNT 5.4 X10'3 (4.5-11.0)
[2021-02-10 09:14] LABS: ALBUMIN 2.2 G/DL (3.4-5.0); ANION GAP 10 (8-16); BLOOD UREA NITROGEN 34 MG/DL (7-18); CALCIUM 8.6 MG/DL (8.5-10.1); CHLORIDE 103 MMOL/L (99-107); CREATININE 1.26 MG/DL (0.60-1.10); GLUCOSE 104 MG/DL (70-104); SODIUM 145 MMOL/L (135-145); TOTAL CARBON DIOXIDE 31.6 MMOL/L (24-32); eGFR 54 ML/MIN
[2021-02-10] MEDS: levoFLOXACIN 500mg tablet PO SCH (10:20)
[2021-02-10] MEDS: azithromycin 250mg tablet PO SCH (10:20)
[2021-02-10] MEDS: HYDROcodone/acetaminophen 5mg/325mg tablet PO PRN ×2 (10:29→21:27)
--- NOTE | 2021-02-10 19:15 | NUR ---
Paged Dr Chatterjee re: pain relief: PAGER ID: [phone] MESSAGE: Jose Daniel Gonzalez [phone] pt with increased pain. [place] barely effective. 30+ breaths/min. May we give him dilaudid? Idalia [phone]
--- NOTE | 2021-02-10 20:25 | NUR ---
Sent Dr Sen francois message re: unrelieved pain: PAGER ID: [phone] MESSAGE: Jose Daniel Gonzalez [phone] Patient continues w/unrelieved pain and tachypnea after [place] admin. May pt have dilaudid IV? Idalia [phone]
[2021-02-10] MEDS: Melatonin 3mg tablet PO SCH (21:00)
[2021-02-10] MEDS: sennosides 8.6mg tablet PO SCH (21:00)
[2021-02-10] MEDS: carbidopa/levodopa 50/200mg CR tablet PO SCH (21:38)
[2021-02-10] MEDS: enoxaparin 40mg/0.4ml syringe SQ SCH (21:42)
[2021-02-10] MEDS: latanoprost 0.005% 2.5ml ophthalmic drops EACHEYE SCH (21:43)
[2021-02-10] MEDS ORDERED: HYDROmorphone 1 mg/ml syringe IV PRN (22:30)
[2021-02-11 02:00] VITALS: BP 102/49
[2021-02-11] MEDS: ipratropium/albuterol 3ml nebule NEB SCH ×6 (02:50→23:41)
[2021-02-11 06:00] VITALS: BP 87/41
--- NOTE | 2021-02-11 06:27 | NUR ---
Problems reprioritized. Patient report given, questions answered & plan of care reviewed with FELICITA Kruse.
[2021-02-11 06:30] LABS: BASOPHILS % (AUTO) 0.2 % (0-1); EOSINOPHILS # (AUTO) 0.1 X10'3 (0-0.9); EOSINOPHILS % (AUTO) 0.7 % (0-6); HEMATOCRIT 29.3 % (42.0-52.0); HEMOGLOBIN 9.9 g/dl (14.0-17.9); LYMPHOCYTES # (AUTO) 0.6 X10'3 (1.1-4.8); LYMPHOCYTES % (AUTO) 7.9 % (21-51); MEAN CORPUSCULAR HEMOGLOBIN 31.2 PG (27.0-31.0); MEAN CORPUSCULAR HGB CONC 33.8 g/dL (33.0-36.5); MEAN CORPUSCULAR VOLUME 92.2 FL (78-98); MEAN PLATELET VOLUME 6.8 FL (7.4-10.4); MONOCYTES # (AUTO) 0.3 X10'3 (0-0.9); MONOCYTES % (AUTO) 3.4 % (2-12); NEUTROPHILS # (AUTO) 6.8 X10'3 (1.8-7.7); NEUTROPHILS % (AUTO) 87.8 % (42-75); PLATELET COUNT 327 X10'3 (140-440); RED BLOOD COUNT 3.18 X10'6 (4.70-6.10); WHITE BLOOD COUNT 7.7 X10'3 (4.5-11.0)
--- NOTE | 2021-02-11 06:30 | NUR ---
Patient in room PCU 3023. I have received report from Idalia MIMS and had the opportunity to ask questions and assume patient care.
[2021-02-11 07:00] LABS: ALBUMIN 2.1 G/DL (3.4-5.0); ANION GAP 8 (8-16); BLOOD UREA NITROGEN 32 MG/DL (7-18); CALCIUM 8.1 MG/DL (8.5-10.1); CHLORIDE 105 MMOL/L (99-107); CREATININE 1.23 MG/DL (0.60-1.10); GLUCOSE 89 MG/DL (70-104); MAGNESIUM 2.1 MG/DL (1.5-2.4); POTASSIUM 3.8 MMOL/L (3.5-5.1); SODIUM 141 MMOL/L (135-145); TOTAL CARBON DIOXIDE 28.4 MMOL/L (24-32); eGFR 56 ML/MIN
[2021-02-11] MEDS: budesonide 0.5mg/2ml UD nebule IH SCH ×2 (07:03→19:40)
[2021-02-11] MEDS: azithromycin 250mg tablet PO SCH (08:00)
[2021-02-11] MEDS: amiodarone 200mg tablet PO SCH ×2 (08:00→19:54)
[2021-02-11] MEDS: fluticasone nasal spray 16GM bottle NS SCH (08:00)
[2021-02-11] MEDS: lactose-reduced food (Ensure Enlive) - 237ml bottle PO SCH ×3 (08:00→17:51)
[2021-02-11] MEDS: polyethylene glycol 3350 17gm powd pack PO SCH (08:00)
[2021-02-11] MEDS: ferrous sulfate 325mg tablet PO SCH (08:00)
[2021-02-11] MEDS: cholecalciferol (vitamin D3) 1,000 unit (25mcg) tablet PO SCH (08:00)
[2021-02-11] MEDS: carbidoba-levodopa 25-100mg tablet PO SCH ×4 (08:00→21:00)
[2021-02-11] MEDS: K and/or MAG REPLACEMENT MC SCH ×2 (08:00→20:00)
[2021-02-11] MEDS: lactobacillus rhamnosus 10,000 MMU CELLS/CAPSULE PO SCH ×2 (08:00→19:54)
[2021-02-11] MEDS: docusate sod 250mg capsule PO SCH ×2 (08:00→19:54)
[2021-02-11] MEDS: beta-carotene(A) w/C & E + minerals tab PO SCH ×2 (08:00→19:54)
[2021-02-11] MEDS: fludrocortisone acetate 0.1mg tablet PO SCH (08:00)
--- NOTE | 2021-02-11 08:30 | NUR ---
Opened patients medication. Patient was too drowsy to swallow. Talked to Charge and pharmacy, will put meds in patient specific. Try again in an hour or two.
[2021-02-11 11:00] VITALS: BP 114/58
[2021-02-11] MEDS: levoFLOXACIN 500mg tablet PO SCH (11:25)
[2021-02-11 15:00] VITALS: BP 106/53
--- NOTE | 2021-02-11 18:31 | NUR ---
Problems reprioritized. Patient report given, questions answered & plan of care reviewed with Anat MIMS. Patient stable at transfer of care.
[2021-02-11 19:00] VITALS: BP 120/66
[2021-02-11] MEDS: enoxaparin 40mg/0.4ml syringe SQ SCH (19:56)
[2021-02-11] MEDS: sennosides 8.6mg tablet PO SCH (21:00)
[2021-02-11] MEDS: carbidopa/levodopa 50/200mg CR tablet PO SCH (21:00)
[2021-02-11] MEDS: Melatonin 3mg tablet PO SCH (21:00)
[2021-02-11] MEDS: latanoprost 0.005% 2.5ml ophthalmic drops EACHEYE SCH (21:00)
[2021-02-11 23:00] VITALS: BP 121/53
[2021-02-12] MEDS: ipratropium/albuterol 3ml nebule NEB SCH ×3 (02:55→11:20)
[2021-02-12 03:00] VITALS: BP 110/50
[2021-02-12 06:00] VITALS: BP 113/61
[2021-02-12 06:49] LABS: MAGNESIUM 2.6 MG/DL (1.5-2.4); POTASSIUM 4.1 MMOL/L (3.5-5.1)
[2021-02-12] MEDS: fluticasone nasal spray 16GM bottle NS SCH (08:00)
[2021-02-12] MEDS: amiodarone 200mg tablet PO SCH ×2 (08:00→20:50)
[2021-02-12] MEDS: docusate sod 250mg capsule PO SCH ×2 (08:00→20:53)
[2021-02-12] MEDS: cholecalciferol (vitamin D3) 1,000 unit (25mcg) tablet PO SCH (08:00)
[2021-02-12] MEDS: K and/or MAG REPLACEMENT MC SCH ×2 (08:00→20:00)
[2021-02-12] MEDS: lactobacillus rhamnosus 10,000 MMU CELLS/CAPSULE PO SCH ×2 (08:00→20:51)
[2021-02-12] MEDS: ferrous sulfate 325mg tablet PO SCH (08:00)
[2021-02-12] MEDS: beta-carotene(A) w/C & E + minerals tab PO SCH ×2 (08:00→20:52)
[2021-02-12] MEDS: fludrocortisone acetate 0.1mg tablet PO SCH (08:00)
[2021-02-12] MEDS: carbidoba-levodopa 25-100mg tablet PO SCH ×4 (08:00→20:52)
[2021-02-12] MEDS: lactose-reduced food (Ensure Enlive) - 237ml bottle PO SCH ×3 (08:00→18:00)
[2021-02-12] MEDS: polyethylene glycol 3350 17gm powd pack PO SCH (08:00)
[2021-02-12] MEDS: budesonide 0.5mg/2ml UD nebule IH SCH (08:07)
[2021-02-12 11:00] VITALS: BP 121/56
--- NOTE | 2021-02-12 11:08 | NUR ---
Reassessment: Pt seen by ST today, recommended continue current Puree/NTL diet, though pt has been refusing most care. Pt remains A&0 x 1 and confused w/ refusal of most meals and ONS since 02/10, feeder needed. LBM 02/03, pt refusing bowel care. Limited nutrition interventions at this time given pt refusal of care. Will continue to monitor. Rec: 1. Continue pureed diet with nectar thick liquids per recs; encourage PO intake 2. Ensure Enlive TIDWM 3. MVM for wound healing 4. Routine bowel care 5. Scaled wt this admit; subsequent weekly wts 6. If pt continues with inadequate intake and unable to safely advance diet, consider TF if within patient's plan of care Addendum: 02/12/21 at [address] Amended: Links added.
[2021-02-12] MEDS: levoFLOXACIN 500mg tablet PO SCH (12:14)
[2021-02-12] MEDS: azithromycin 250mg tablet PO SCH (12:17)
[2021-02-12] MEDS ORDERED: AMIO200T67 PO (12:22)
[2021-02-12] MEDS ORDERED: ALBUTEROL INHALER 1 PUFF/90 MCG INHALER IH PRN (15:10)
--- NOTE | 2021-02-12 15:11 | NUR ---
RAPID COVID ORDER PLACED FOR POSSIBLE TRANSFER, RESULTS RETURNED BACK POSITIVE. PATIENT NOW IN ISOLATION ROOM. AWARE.
[2021-02-12 15:26] LABS: BASOPHILS % (AUTO) 0.1 % (0-1); EOSINOPHILS % (AUTO) 0 % (0-6); HEMATOCRIT 31.1 % (42.0-52.0); HEMOGLOBIN 10.2 g/dl (14.0-17.9); LYMPHOCYTES # (AUTO) 0.5 X10'3 (1.1-4.8); LYMPHOCYTES % (AUTO) 5.3 % (21-51); MEAN CORPUSCULAR HEMOGLOBIN 30.7 PG (27.0-31.0); MEAN CORPUSCULAR HGB CONC 32.8 g/dL (33.0-36.5); MEAN CORPUSCULAR VOLUME 93.6 FL (78-98); MEAN PLATELET VOLUME 6.8 FL (7.4-10.4); MONOCYTES # (AUTO) 0.4 X10'3 (0-0.9); MONOCYTES % (AUTO) 3.8 % (2-12); NEUTROPHILS # (AUTO) 9.3 X10'3 (1.8-7.7); NEUTROPHILS % (AUTO) 90.8 % (42-75); PLATELET COUNT 402 X10'3 (140-440); RED BLOOD COUNT 3.33 X10'6 (4.70-6.10); RED CELL DISTRIBUTION WIDTH 14.9 % (11.5-14.5); WHITE BLOOD COUNT 10.2 X10'3 (4.5-11.0)
[2021-02-12 15:35] LABS: D-DIMER 2.48 MG/L FEU (0-0.50)
[2021-02-12 15:39] LABS: ALANINE AMINOTRANSFERASE 19 U/L (12-78); ALBUMIN 2.2 G/DL (3.4-5.0); ALBUMIN/GLOBULIN RATIO 0.5 (1.1-1.5); ALKALINE PHOSPHATASE 82 IU/L (46-116); ANION GAP 9 (8-16); ASPARTATE AMINO TRANSFERASE 63 U/L (10-37); BILIRUBIN,TOTAL 0.6 MG/DL (0.1-1.0); BLOOD UREA NITROGEN 37 MG/DL (7-18); BUN/CREATININE RATIO 34.9 (5.4-32.0); CALCIUM 8.4 MG/DL (8.5-10.1); CHLORIDE 108 MMOL/L (99-107); CREATININE 1.06 MG/DL (0.60-1.10); GLUCOSE 101 MG/DL (70-104); POTASSIUM 3.6 MMOL/L (3.5-5.1); SODIUM 143 MMOL/L (135-145); TOTAL CARBON DIOXIDE 26.5 MMOL/L (24-32); TOTAL PROTEIN 6.6 G/DL (6.4-8.2); eGFR 66 ML/MIN
[2021-02-12] MEDS ORDERED: REMDESIVIR INJ 200 MG in normal saline 100ml IV soln 60 ML IV ONE (16:30)
--- NOTE | 2021-02-12 18:40 | NUR ---
Patient in room PCU 3008. I have received report from Jhonatan MIMS and had the opportunity to ask questions and assume patient care.
--- NOTE | 2021-02-12 18:52 | NUR ---
Problems reprioritized. Patient report given, questions answered & plan of care reviewed with Kelly MIMS.
[2021-02-12] MEDS: dexamethasone inj 6 MG in normal saline 50ml IV soln 50 ML IV SCH (20:42)
[2021-02-12 20:45] VITALS: BP 123/57
[2021-02-12] MEDS: Melatonin 3mg tablet PO SCH (20:51)
[2021-02-12] MEDS: carbidopa/levodopa 50/200mg CR tablet PO SCH (20:51)
[2021-02-12] MEDS: enoxaparin 40mg/0.4ml syringe SQ SCH (20:55)
[2021-02-12] MEDS: latanoprost 0.005% 2.5ml ophthalmic drops EACHEYE SCH (20:57)
[2021-02-12] MEDS: sennosides 8.6mg tablet PO SCH (21:00)
[2021-02-13] VITALS (7 sets, daily range): BP systolic 105–151; BP diastolic 50–72
--- NOTE | 2021-02-13 06:30 | NUR ---
Problems reprioritized. Patient report given, questions answered & plan of care reviewed with Jhonatan MIMS.
[2021-02-13 06:57] LABS: D-DIMER 2.33 MG/L FEU (0-0.50)
[2021-02-13 07:03] LABS: ALANINE AMINOTRANSFERASE 7 U/L (12-78); ALBUMIN 2.2 G/DL (3.4-5.0); ALBUMIN/GLOBULIN RATIO 0.5 (1.1-1.5); ALKALINE PHOSPHATASE 81 IU/L (46-116); ANION GAP 14 (8-16); ASPARTATE AMINO TRANSFERASE 48 U/L (10-37); BILIRUBIN,TOTAL 0.6 MG/DL (0.1-1.0); BLOOD UREA NITROGEN 42 MG/DL (7-18); BUN/CREATININE RATIO 44.7 (5.4-32.0); C-REACTIVE PROTEIN 20.92 MG/DL (0.0-0.5); CALCIUM 8.5 MG/DL (8.5-10.1); CHLORIDE 109 MMOL/L (99-107); CREATININE 0.94 MG/DL (0.60-1.10); GLUCOSE 117 MG/DL (70-104); MAGNESIUM 2.4 MG/DL (1.5-2.4); SODIUM 148 MMOL/L (135-145); TOTAL CARBON DIOXIDE 24.9 MMOL/L (24-32); TOTAL PROTEIN 6.7 G/DL (6.4-8.2); eGFR 76 ML/MIN
[2021-02-13 07:10] LABS: BASOPHILS % (AUTO) 0.1 % (0-1); EOSINOPHILS % (AUTO) 0 % (0-6); HEMATOCRIT 31.1 % (42.0-52.0); HEMOGLOBIN 10.5 g/dl (14.0-17.9); LYMPHOCYTES # (AUTO) 0.5 X10'3 (1.1-4.8); LYMPHOCYTES % (AUTO) 6.7 % (21-51); MEAN CORPUSCULAR HEMOGLOBIN 30.9 PG (27.0-31.0); MEAN CORPUSCULAR HGB CONC 33.9 g/dL (33.0-36.5); MEAN CORPUSCULAR VOLUME 91.1 FL (78-98); MEAN PLATELET VOLUME 7.3 FL (7.4-10.4); MONOCYTES # (AUTO) 0.2 X10'3 (0-0.9); MONOCYTES % (AUTO) 2.3 % (2-12); NEUTROPHILS # (AUTO) 7.1 X10'3 (1.8-7.7); NEUTROPHILS % (AUTO) 90.9 % (42-75); PLATELET COUNT 444 X10'3 (140-440); RED BLOOD COUNT 3.41 X10'6 (4.70-6.10); RED CELL DISTRIBUTION WIDTH 15.2 % (11.5-14.5); WHITE BLOOD COUNT 7.8 X10'3 (4.5-11.0)
[2021-02-13] MEDS: azithromycin 250mg tablet PO SCH (08:00)
[2021-02-13] MEDS: docusate sod 250mg capsule PO SCH ×2 (08:00→21:25)
[2021-02-13] MEDS: beta-carotene(A) w/C & E + minerals tab PO SCH ×2 (08:00→21:26)
[2021-02-13] MEDS: lactobacillus rhamnosus 10,000 MMU CELLS/CAPSULE PO SCH ×2 (08:00→21:27)
[2021-02-13] MEDS: fluticasone nasal spray 16GM bottle NS SCH (08:00)
[2021-02-13] MEDS: carbidoba-levodopa 25-100mg tablet PO SCH ×4 (08:00→21:00)
[2021-02-13] MEDS: cholecalciferol (vitamin D3) 1,000 unit (25mcg) tablet PO SCH (08:00)
[2021-02-13] MEDS: lactose-reduced food (Ensure Enlive) - 237ml bottle PO SCH ×3 (08:00→21:18)
[2021-02-13] MEDS: ferrous sulfate 325mg tablet PO SCH (08:00)
[2021-02-13] MEDS: amiodarone 200mg tablet PO SCH ×2 (08:00→21:27)
[2021-02-13] MEDS: K and/or MAG REPLACEMENT MC SCH ×2 (08:00→20:00)
[2021-02-13] MEDS: fludrocortisone acetate 0.1mg tablet PO SCH (08:00)
[2021-02-13] MEDS: polyethylene glycol 3350 17gm powd pack PO SCH (08:00)
[2021-02-13] MEDS: sodium chloride 0.45% 1,000 ML IV SCH ×2 (08:40→21:04)
[2021-02-13] MEDS: dexamethasone inj 6 MG in normal saline 50ml IV soln 50 ML IV SCH ×2 (09:25→21:04)
[2021-02-13] MEDS: REMDESIVIR INJ 100 MG in normal saline 100ml IV soln 80 ML IV SCH (09:43)
[2021-02-13] MEDS: levoFLOXACIN 250mg tablet PO SCH (11:00)
--- NOTE | 2021-02-13 11:17 | NUR ---
PATIENT HAVING DIFFICULTY SWALLOWING AND REFUSED THEIR MEDS. MD NOTIFIED.
--- NOTE | 2021-02-13 18:55 | NUR ---
Problems reprioritized. Patient report given, questions answered & plan of care reviewed with Reggie MIMS.
--- NOTE | 2021-02-13 18:56 | NUR ---
Patient in room PCU 3008. I have received report from JANINA MIMS and had the opportunity to ask questions and assume patient care.
[2021-02-13] MEDS: sennosides 8.6mg tablet PO SCH (21:00)
[2021-02-13] MEDS: Melatonin 3mg tablet PO SCH (21:00)
[2021-02-13] MEDS: carbidopa/levodopa 50/200mg CR tablet PO SCH (21:00)
[2021-02-13] MEDS: latanoprost 0.005% 2.5ml ophthalmic drops EACHEYE SCH (21:15)
[2021-02-13] MEDS: enoxaparin 60mg/0.6ml syringe SQ SCH (21:16)
[2021-02-14 03:00] VITALS: BP 149/77
[2021-02-14] MEDS: sodium chloride 0.45% 1,000 ML IV SCH (04:40)
[2021-02-14 06:00] VITALS: BP 112/56
--- NOTE | 2021-02-14 06:05 | NUR ---
Problems reprioritized. Patient report given, questions answered & plan of care reviewed with JANINA MIMS.
[2021-02-14 06:40] LABS: BASOPHILS % (AUTO) 0.1 % (0-1); EOSINOPHILS % (AUTO) 0 % (0-6); HEMATOCRIT 31.2 % (42.0-52.0); HEMOGLOBIN 10.3 g/dl (14.0-17.9); LYMPHOCYTES # (AUTO) 0.4 X10'3 (1.1-4.8); LYMPHOCYTES % (AUTO) 5.9 % (21-51); MEAN CORPUSCULAR HEMOGLOBIN 30.5 PG (27.0-31.0); MEAN CORPUSCULAR VOLUME 92.6 FL (78-98); MEAN PLATELET VOLUME 7.2 FL (7.4-10.4); MONOCYTES # (AUTO) 0.4 X10'3 (0-0.9); MONOCYTES % (AUTO) 5.8 % (2-12); NEUTROPHILS % (AUTO) 88.2 % (42-75); PLATELET COUNT 508 X10'3 (140-440); RED BLOOD COUNT 3.37 X10'6 (4.70-6.10); RED CELL DISTRIBUTION WIDTH 15.1 % (11.5-14.5); WHITE BLOOD COUNT 6.9 X10'3 (4.5-11.0)
[2021-02-14 06:52] LABS: D-DIMER 2.07 MG/L FEU (0-0.50)
[2021-02-14 07:16] LABS: ALANINE AMINOTRANSFERASE 17 U/L (12-78); ALBUMIN 2.1 G/DL (3.4-5.0); ALBUMIN/GLOBULIN RATIO 0.5 (1.1-1.5); ALKALINE PHOSPHATASE 73 IU/L (46-116); ANION GAP 10 (8-16); ASPARTATE AMINO TRANSFERASE 27 U/L (10-37); BILIRUBIN,TOTAL 0.5 MG/DL (0.1-1.0); BLOOD UREA NITROGEN 41 MG/DL (7-18); BUN/CREATININE RATIO 44.6 (5.4-32.0); C-REACTIVE PROTEIN 10.98 MG/DL (0.0-0.5); CALCIUM 8.5 MG/DL (8.5-10.1); CHLORIDE 112 MMOL/L (99-107); CREATININE 0.92 MG/DL (0.60-1.10); GLUCOSE 118 MG/DL (70-104); MAGNESIUM 2.3 MG/DL (1.5-2.4); POTASSIUM 3.6 MMOL/L (3.5-5.1); SODIUM 147 MMOL/L (135-145); TOTAL CARBON DIOXIDE 25.3 MMOL/L (24-32); TOTAL PROTEIN 6.3 G/DL (6.4-8.2); eGFR 78 ML/MIN
[2021-02-14] MEDS: fludrocortisone acetate 0.1mg tablet PO SCH (08:00)
[2021-02-14] MEDS: carbidoba-levodopa 25-100mg tablet PO SCH ×4 (08:00→21:00)
[2021-02-14] MEDS: beta-carotene(A) w/C & E + minerals tab PO SCH ×2 (08:00→20:00)
[2021-02-14] MEDS: docusate sod 250mg capsule PO SCH ×2 (08:00→20:00)
[2021-02-14] MEDS: cholecalciferol (vitamin D3) 1,000 unit (25mcg) tablet PO SCH (08:00)
[2021-02-14] MEDS: K and/or MAG REPLACEMENT MC SCH ×3 (08:00→20:00)
[2021-02-14] MEDS: ferrous sulfate 325mg tablet PO SCH (08:00)
[2021-02-14] MEDS: amiodarone 200mg tablet PO SCH ×2 (08:00→20:00)
[2021-02-14] MEDS: polyethylene glycol 3350 17gm powd pack PO SCH (08:00)
[2021-02-14] MEDS: lactobacillus rhamnosus 10,000 MMU CELLS/CAPSULE PO SCH ×2 (08:00→20:00)
[2021-02-14] MEDS: azithromycin 250mg tablet PO SCH (08:00)
[2021-02-14] MEDS: fluticasone nasal spray 16GM bottle NS SCH (08:00)
[2021-02-14] MEDS: lactose-reduced food (Ensure Enlive) - 237ml bottle PO SCH ×2 (08:00→13:00)
[2021-02-14] MEDS: dexamethasone inj 6 MG in normal saline 50ml IV soln 50 ML IV SCH ×2 (09:37→23:31)
[2021-02-14] MEDS: REMDESIVIR INJ 100 MG in normal saline 100ml IV soln 80 ML IV SCH (09:43)
[2021-02-14] MEDS: enoxaparin 60mg/0.6ml syringe SQ SCH ×2 (09:48→23:33)
[2021-02-14 11:00] VITALS: BP 139/56
[2021-02-14] MEDS: levoFLOXACIN 250mg tablet PO SCH (11:00)
--- NOTE | 2021-02-14 12:42 | NUR ---
PPN consult: Pt COVID positive 02/12 per EMR. Pt continues with pureed diet with nectar thick liquids however has been refusing most meals and ONS. Per bedside RN, pt has been receiving assistance with meals though noted to be pocketing liquids requiring suctioning. D/w RN and ST patient's PO status, ST in agreement with NPO and alternative nutrition. D/w RN recommendation for Corpak placement however per RN it is unlikely that a Corpak could be placed and remain in place at this time as pt would likely pull it out. Informed RN that PPN is just for short term nutrition, roughly for about three days. PPN recommendations below have been d/w clinical pharmacist. Noted serum Na is elevated at 147 MMOL/L though pt previously receiving NS which was discontinued today per EMR. LBM 02/03, with routine bowel care available however not given d/t patient's inability to swallow and pt refusing bowel care prior. Will continue to follow closely. Rec: 1. Continuous PPN using 2:1 Clinimix-E 4.25/10 with goal rate of 105 mL/hr with additional 250 mL 20% intralipids to run at 20.83 mL/hr for 12 hours/day. In total to provide 2770 mL volume/day, 1785 kcal, 107 g AA, 252 g dextrose (2.60 mg/kg/min dext load), and 50 g lipids 2. Prealbumin and TG q Friday/ 3. Daily scaled weights 4. Consider EN for nutrition if able to place NG tube given functional gut 5. F/u BSS with ST prior to PO diet advancement 6. Continue MVM for wound healing 7. Routine bowel care Addendum: 02/14/21 at [address] Amended: Links added.
[2021-02-14] MEDS ORDERED: magnesium 2GM in 50ml NS 50 ML IV PRN (14:30)
[2021-02-14] MEDS ORDERED: magnesium 4gm in 100ml NS 100 ML IV PRN (14:30)
[2021-02-14] MEDS ORDERED: Dextrose 10%-water IV solution 1,000 ML IV PRN (14:30)
[2021-02-14] MEDS ORDERED: potassium Cl 40MEQ/1/2NS 520ml 520 ML IV PRN ×2 (14:30)
[2021-02-14] MEDS ORDERED: potassium Cl 20 mEq SR tablet PO PRN ×2 (14:30)
[2021-02-14] MEDS ORDERED: magnesium Cl slow-release 64mg tablet PO PRN (14:30)
[2021-02-14] MEDS ORDERED: levoFLOXACIN-Levaquin 250mg/D5 50 ML IV SCH (14:40)
[2021-02-14 15:05] LABS: PHOSPHORUS 3.2 MG/DL (2.3-4.5); PREALBUMIN 10.4 MG/DL (19-36)
--- NOTE | 2021-02-14 15:20 | NUR ---
Dr. Miller paged: Nilesh Ricketts [phone]: No PICC nurse in house today. Also, may I place order for PICC line? [id number]
--- NOTE | 2021-02-14 16:23 | NUR ---
STATES THAT NO PICC LINE IS NEEDED. TOLD ME THAT PATIENT IS BEING PLACED ON COMFORT CARE AFTER TALKING WITH FAMILY.
[2021-02-14] MEDS ORDERED: ZINC/COPPER/MANGANESE/SELENIUM 0.5 ML, chromic chloride inj. 5 MCG in AA 4.25%/CALCIUM/... IV SCH (17:00)
--- NOTE | 2021-02-14 19:05 | NUR ---
Patient in room PCU 3008. I have received report from FELICITA Israel and had the opportunity to ask questions and assume patient care.
[2021-02-14] MEDS: carbidopa/levodopa 50/200mg CR tablet PO SCH (21:00)
[2021-02-14] MEDS: sennosides 8.6mg tablet PO SCH (21:00)
[2021-02-14] MEDS: Melatonin 3mg tablet PO SCH (21:00)
[2021-02-14 23:00] VITALS: BP 103/44
[2021-02-14] MEDS: fat emulsion IV bag 250 ML IV SCH (23:32)
[2021-02-14] MEDS: latanoprost 0.005% 2.5ml ophthalmic drops EACHEYE SCH (23:49)
[2021-02-15] VITALS (10 sets, daily range): BP systolic 77–145; BP diastolic 44–66
[2021-02-15] MEDS ORDERED: normal saline 1000ml 1,000 ML IV ONE (05:45)
--- NOTE | 2021-02-15 06:40 | NUR ---
Patient receiving bolus of 500ml/hr in left forearm along with the bolus of 200 ml/hr with PPN and lipids running in left hand.Patient was placed in Trendlenberg position. It was discovered that the patient has a GI bleed. Dr. Chiang aware and oncoming day nurse is aware. Type and screen being done right now. Last BP taken was 89/43 up from 66/39.
--- NOTE | 2021-02-15 06:41 | NUR ---
Problems reprioritized. Patient report given, questions answered & plan of care reviewed with FELICITA Friedman.
[2021-02-15 06:53] LABS: BASOPHILS % (AUTO) 0.1 % (0-1); EOSINOPHILS % (AUTO) 0 % (0-6); HEMATOCRIT 26.5 % (42.0-52.0); HEMOGLOBIN 8.7 g/dl (14.0-17.9); LYMPHOCYTES # (AUTO) 0.1 X10'3 (1.1-4.8); LYMPHOCYTES % (AUTO) 1.3 % (21-51); MEAN CORPUSCULAR HEMOGLOBIN 30.6 PG (27.0-31.0); MEAN CORPUSCULAR HGB CONC 32.9 g/dL (33.0-36.5); MEAN CORPUSCULAR VOLUME 92.7 FL (78-98); MEAN PLATELET VOLUME 7.5 FL (7.4-10.4); MONOCYTES # (AUTO) 0.6 X10'3 (0-0.9); MONOCYTES % (AUTO) 5.7 % (2-12); NEUTROPHILS # (AUTO) 9.4 X10'3 (1.8-7.7); NEUTROPHILS % (AUTO) 92.9 % (42-75); PLATELET COUNT 493 X10'3 (140-440); RED BLOOD COUNT 2.86 X10'6 (4.70-6.10); RED CELL DISTRIBUTION WIDTH 15.2 % (11.5-14.5); WHITE BLOOD COUNT 10.1 X10'3 (4.5-11.0)
--- NOTE | 2021-02-15 06:54 | NUR ---
Patient in room PCU 3008. I have received report from FELICITA Bills and had the opportunity to ask questions and assume patient care.
[2021-02-15 07:08] LABS: D-DIMER 2.25 MG/L FEU (0-0.50)
--- NOTE | 2021-02-15 07:14 | NUR ---
Paged Dr Miller: PAGER ID: [phone] MESSAGE: Jose Daniel Gonzalez [phone] hypotensive, new GI bleed, rectal bleeding. pt son is here and would like to switch pt to comfort care. Can you come see them kane? Idalia [phone] Dr Miller called and discussed pt condition and family desire to switch to comfort care. Dr Miller will come see pt and family shortly and gave order to cancel pending transfusion. Blood bank notified.
[2021-02-15 07:17] LABS: ALANINE AMINOTRANSFERASE 18 U/L (12-78); ALBUMIN 1.8 G/DL (3.4-5.0); ALBUMIN/GLOBULIN RATIO 0.5 (1.1-1.5); ALKALINE PHOSPHATASE 63 IU/L (46-116); ANION GAP 9 (8-16); ASPARTATE AMINO TRANSFERASE 17 U/L (10-37); BILIRUBIN,TOTAL 0.5 MG/DL (0.1-1.0); BLOOD UREA NITROGEN 54 MG/DL (7-18); C-REACTIVE PROTEIN 5.05 MG/DL (0.0-0.5); CHLORIDE 115 MMOL/L (99-107); CREATININE 1.08 MG/DL (0.60-1.10); GLUCOSE 145 MG/DL (70-104); MAGNESIUM 2.3 MG/DL (1.5-2.4); PHOSPHORUS 2.9 MG/DL (2.3-4.5); POTASSIUM 3.7 MMOL/L (3.5-5.1); PREALBUMIN 10.9 MG/DL (19-36); SODIUM 148 MMOL/L (135-145); TOTAL CARBON DIOXIDE 23.9 MMOL/L (24-32); TOTAL PROTEIN 5.3 G/DL (6.4-8.2); TRIGLYCERIDES 128 MG/DL (20-135); eGFR 64 ML/MIN
[2021-02-15] MEDS: HYDROmorphone 1 mg/ml syringe IV PRN ×2 (07:51→17:30)
[2021-02-15] MEDS: fluticasone nasal spray 16GM bottle NS SCH (08:00)
[2021-02-15] MEDS ORDERED: MVI, adult No.4 with vit. K 10 ML in dextrose 5% water 500ml 500 ML IV SCH ×2 (08:00)
[2021-02-15] MEDS: polyethylene glycol 3350 17gm powd pack PO SCH (08:00)
[2021-02-15] MEDS: lactobacillus rhamnosus 10,000 MMU CELLS/CAPSULE PO SCH ×2 (08:00→20:00)
[2021-02-15] MEDS: carbidoba-levodopa 25-100mg tablet PO SCH ×4 (08:00→20:16)
[2021-02-15] MEDS: ferrous sulfate 325mg tablet PO SCH (08:00)
[2021-02-15] MEDS: K and/or MAG REPLACEMENT MC SCH ×4 (08:00→20:00)
[2021-02-15] MEDS: dexamethasone inj 6 MG in normal saline 50ml IV soln 50 ML IV SCH ×2 (08:00→20:06)
[2021-02-15] MEDS: beta-carotene(A) w/C & E + minerals tab PO SCH ×2 (08:00→20:00)
[2021-02-15] MEDS: docusate sod 250mg capsule PO SCH ×2 (08:00→20:00)
[2021-02-15] MEDS: cholecalciferol (vitamin D3) 1,000 unit (25mcg) tablet PO SCH (08:00)
[2021-02-15] MEDS: amiodarone 200mg tablet PO SCH ×2 (08:00→20:00)
[2021-02-15] MEDS: fludrocortisone acetate 0.1mg tablet PO SCH (08:00)
[2021-02-15] MEDS: REMDESIVIR INJ 100 MG in normal saline 100ml IV soln 80 ML IV SCH (09:14)
--- NOTE | 2021-02-15 18:10 | NUR ---
Patient in room PCU 3008. I have received report from FELICITA Freidman and had the opportunity to ask questions and assume patient care.
--- NOTE | 2021-02-15 18:20 | NUR ---
Problems reprioritized. Patient report given, questions answered & plan of care reviewed with FELICITA Renae.
--- NOTE | 2021-02-15 19:40 | NUR ---
Spoke with Donta in pharmacy to confirm PPN is hanging and is okay to hang lipids and PPN without PICC.
[2021-02-15] MEDS: ZINC/COPPER/MANGANESE/SELENIUM 0.5 ML, chromic chloride inj. 5 MCG in AA 4.25%/CALCIUM/... IV SCH (20:05)
[2021-02-15] MEDS: fat emulsion IV bag 250 ML IV SCH (20:06)
[2021-02-15] MEDS: Melatonin 3mg tablet PO SCH (20:16)
[2021-02-15] MEDS: sennosides 8.6mg tablet PO SCH (20:16)
[2021-02-15] MEDS: latanoprost 0.005% 2.5ml ophthalmic drops EACHEYE SCH (20:17)
[2021-02-15] MEDS: carbidopa/levodopa 50/200mg CR tablet PO SCH (20:17)
[2021-02-16 02:59] VITALS: BP 100/49
[2021-02-16] MEDS: ZINC/COPPER/MANGANESE/SELENIUM 0.5 ML, chromic chloride inj. 5 MCG in AA 4.25%/CALCIUM/... IV SCH ×3 (05:33→16:43)
--- NOTE | 2021-02-16 05:59 | NUR ---
Problems reprioritized. Patient report given, questions answered & plan of care reviewed with FELICITA Friedman.
[2021-02-16 06:00] VITALS: BP 120/66
--- NOTE | 2021-02-16 06:03 | NUR ---
Patient in room PCU 3008. I have received report from FELICITA Renae and had the opportunity to ask questions and assume patient care.
[2021-02-16] MEDS: HYDROmorphone 1 mg/ml syringe IV PRN (06:32)
[2021-02-16 07:34] LABS: ALANINE AMINOTRANSFERASE 16 U/L (12-78); ALBUMIN/GLOBULIN RATIO 0.6 (1.1-1.5); ALKALINE PHOSPHATASE 66 IU/L (46-116); ANION GAP 9 (8-16); ASPARTATE AMINO TRANSFERASE 21 U/L (10-37); BILIRUBIN,TOTAL 0.4 MG/DL (0.1-1.0); BLOOD UREA NITROGEN 58 MG/DL (7-18); BUN/CREATININE RATIO 65.9 (5.4-32.0); C-REACTIVE PROTEIN 3.71 MG/DL (0.0-0.5); CALCIUM 8.1 MG/DL (8.5-10.1); CHLORIDE 114 MMOL/L (99-107); CREATININE 0.88 MG/DL (0.60-1.10); GLUCOSE 155 MG/DL (70-104); MAGNESIUM 2.5 MG/DL (1.5-2.4); PHOSPHORUS 3.3 MG/DL (2.3-4.5); POTASSIUM 3.9 MMOL/L (3.5-5.1); SODIUM 145 MMOL/L (135-145); TOTAL CARBON DIOXIDE 21.6 MMOL/L (24-32); TOTAL PROTEIN 5.6 G/DL (6.4-8.2); eGFR 82 ML/MIN
[2021-02-16] MEDS: amiodarone 200mg tablet PO SCH ×2 (08:00→20:00)
[2021-02-16] MEDS: K and/or MAG REPLACEMENT MC SCH ×4 (08:00→20:00)
[2021-02-16] MEDS: carbidoba-levodopa 25-100mg tablet PO SCH ×4 (08:00→21:00)
[2021-02-16] MEDS: polyethylene glycol 3350 17gm powd pack PO SCH (08:00)
[2021-02-16] MEDS: lactobacillus rhamnosus 10,000 MMU CELLS/CAPSULE PO SCH ×2 (08:00→20:00)
[2021-02-16] MEDS: fludrocortisone acetate 0.1mg tablet PO SCH (08:00)
[2021-02-16] MEDS: docusate sod 250mg capsule PO SCH ×2 (08:00→20:00)
[2021-02-16] MEDS: beta-carotene(A) w/C & E + minerals tab PO SCH ×2 (08:00→20:00)
[2021-02-16] MEDS: fluticasone nasal spray 16GM bottle NS SCH (08:00)
[2021-02-16] MEDS: cholecalciferol (vitamin D3) 1,000 unit (25mcg) tablet PO SCH (08:00)
[2021-02-16] MEDS: ferrous sulfate 325mg tablet PO SCH (08:00)
[2021-02-16] MEDS: dexamethasone inj 6 MG in normal saline 50ml IV soln 50 ML IV SCH ×2 (08:01→21:12)
[2021-02-16] MEDS: REMDESIVIR INJ 100 MG in normal saline 100ml IV soln 80 ML IV SCH (08:01)
[2021-02-16 09:06] LABS: D-DIMER 2.46 MG/L FEU (0-0.50)
[2021-02-16 09:07] LABS: BASOPHILS % (AUTO) 0.3 % (0-1); EOSINOPHILS % (AUTO) 0 % (0-6); HEMATOCRIT 28.2 % (42.0-52.0); HEMOGLOBIN 9.4 g/dl (14.0-17.9); LYMPHOCYTES # (AUTO) 0.3 X10'3 (1.1-4.8); LYMPHOCYTES % (AUTO) 1.8 % (21-51); MEAN CORPUSCULAR HEMOGLOBIN 30.5 PG (27.0-31.0); MEAN CORPUSCULAR HGB CONC 33.3 g/dL (33.0-36.5); MEAN CORPUSCULAR VOLUME 91.7 FL (78-98); MEAN PLATELET VOLUME 8.2 FL (7.4-10.4); MONOCYTES # (AUTO) 1.2 X10'3 (0-0.9); MONOCYTES % (AUTO) 7.1 % (2-12); NEUTROPHILS # (AUTO) 15.9 X10'3 (1.8-7.7); NEUTROPHILS % (AUTO) 90.8 % (42-75); PLATELET COUNT 408 X10'3 (140-440); RED BLOOD COUNT 3.08 X10'6 (4.70-6.10); WHITE BLOOD COUNT 17.5 X10'3 (4.5-11.0)
[2021-02-16 11:00] VITALS: BP 110/57
--- NOTE | 2021-02-16 14:21 | NUR ---
Paged Dr Candy smart patient plan of care: PAGER ID: [phone] MESSAGE: Jose Daniel Gonzalez [phone] spoke to son has some ideas for a last try before choosing comfort care. I can tell you what we discussed and then can you call him at [phone] [place] [phone]
[2021-02-16 15:00] VITALS: BP 133/62
--- NOTE | 2021-02-16 15:55 | NUR ---
F/u: TC to RN to inquire about patient's POC. Per RN pending further d/w MD. Informed RN that tomorrow is the last day for PPN as it will be day three and requested RN d/w for further plan for nutrition. Addendum: 02/16/21 at [address] Amended: Links added.
--- NOTE | 2021-02-16 18:05 | NUR ---
Patient in room PCU 3008. I have received report from FELICITA Friedman and had the opportunity to ask questions and assume patient care.
[2021-02-16 19:42] VITALS: BP 123/62
--- NOTE | 2021-02-16 20:19 | NUR ---
NG attempted, pt O2 sats began to drop to high 80's. Will attempt again later.
[2021-02-16] MEDS: Melatonin 3mg tablet PO SCH (21:00)
[2021-02-16] MEDS: carbidopa/levodopa 50/200mg CR tablet PO SCH (21:00)
[2021-02-16] MEDS: sennosides 8.6mg tablet PO SCH (21:00)
[2021-02-16] MEDS: fat emulsion IV bag 250 ML IV SCH (21:12)
[2021-02-16] MEDS: latanoprost 0.005% 2.5ml ophthalmic drops EACHEYE SCH (21:23)
--- NOTE | 2021-02-16 21:51 | NUR ---
Son at bedside; refusing NG tube. States he wants PEG tube. Will pass off to RN day staff to inform MD.
[2021-02-16 22:51] VITALS: BP 123/62
[2021-02-17 01:52] VITALS: BP 113/53
[2021-02-17] MEDS: ZINC/COPPER/MANGANESE/SELENIUM 0.5 ML, chromic chloride inj. 5 MCG in AA 4.25%/CALCIUM/... IV SCH (02:01)
--- NOTE | 2021-02-17 06:27 | NUR ---
Problems reprioritized. Patient report given, questions answered & plan of care reviewed with FELICITA Triana.
[2021-02-17 07:18] VITALS: BP 116/56
[2021-02-17] MEDS: dexamethasone inj 6 MG in normal saline 50ml IV soln 50 ML IV SCH ×2 (07:23→20:33)
[2021-02-17] MEDS: K and/or MAG REPLACEMENT MC SCH ×4 (08:00→20:00)
[2021-02-17] MEDS: lactobacillus rhamnosus 10,000 MMU CELLS/CAPSULE PO SCH ×2 (08:00→20:00)
[2021-02-17] MEDS: carbidoba-levodopa 25-100mg tablet PO SCH ×4 (08:00→20:24)
[2021-02-17] MEDS: amiodarone 200mg tablet PO SCH ×2 (08:00→20:00)
[2021-02-17] MEDS: ferrous sulfate 325mg tablet PO SCH (08:00)
[2021-02-17] MEDS: fludrocortisone acetate 0.1mg tablet PO SCH (08:00)
[2021-02-17] MEDS: docusate sod 250mg capsule PO SCH ×2 (08:00→20:00)
[2021-02-17] MEDS: beta-carotene(A) w/C & E + minerals tab PO SCH ×2 (08:00→20:00)
[2021-02-17] MEDS: cholecalciferol (vitamin D3) 1,000 unit (25mcg) tablet PO SCH (08:00)
[2021-02-17] MEDS: fluticasone nasal spray 16GM bottle NS SCH (08:00)
[2021-02-17] MEDS: polyethylene glycol 3350 17gm powd pack PO SCH (08:00)
[2021-02-17 09:41] LABS: BASOPHILS % (AUTO) 0.1 % (0-1); EOSINOPHILS % (AUTO) 0 % (0-6); HEMATOCRIT 28.3 % (42.0-52.0); HEMOGLOBIN 9.4 g/dl (14.0-17.9); LYMPHOCYTES # (AUTO) 0.3 X10'3 (1.1-4.8); LYMPHOCYTES % (AUTO) 1.7 % (21-51); MEAN CORPUSCULAR HEMOGLOBIN 30.6 PG (27.0-31.0); MEAN CORPUSCULAR HGB CONC 33.1 g/dL (33.0-36.5); MEAN CORPUSCULAR VOLUME 92.5 FL (78-98); MEAN PLATELET VOLUME 8.3 FL (7.4-10.4); MONOCYTES % (AUTO) 5.4 % (2-12); NEUTROPHILS # (AUTO) 16.8 X10'3 (1.8-7.7); NEUTROPHILS % (AUTO) 92.8 % (42-75); PLATELET COUNT 371 X10'3 (140-440); RED BLOOD COUNT 3.06 X10'6 (4.70-6.10); RED CELL DISTRIBUTION WIDTH 15.2 % (11.5-14.5); WHITE BLOOD COUNT 18.1 X10'3 (4.5-11.0)
--- NOTE | 2021-02-17 09:59 | NUR ---
TF consult: Per MD note 02/16 patient's son was in agreement with NG tube placement, though per orthotist prosthetist 02/16 patient's son refused placement of NG tube and wants a PEG. TC to bedside RN who reports no update at this time and confirms pt currently does not have an NG tube in place. Will place TF recommendations below for IF pt to obtain access for EN. Requested RN inform RD of updates regarding patient's plan of care for course of nutrition. Confirmed with clinical pharmacist that today is the last day for PPN. Clinical pharmacist to d/w MD. Recommend f/u BSS with ST prior to PO diet advancement from NPO and/or TF for estimated nutrient needs if within patient's plan of care. LBM 02/16. Will continue to follow closely. Recommendations: 1) IF TF, continuous Vital AF with goal rate of 60 mL/hr. To begin at 20 mL/hr and advance by 20 mL Q8H as tolerated to goal rate 2) IF TF, additional 100 mL water flush Q4H; monitor serum Na 3) IF TF, prealbumin q Friday/, daily scaled weights 4) Discontinue PPN given day 08/02; Continuous PPN using 2:1 Clinimix-E 4.25/10 with goal rate of 105 mL/hr with additional 250 mL 20% intralipids to run at 20.83 mL/hr for 12 hours/day. In total to provide 2770 mL volume/day, 1785 kcal, 107 g AA, 252 g dextrose (2.60 mg/kg/min dext load), and 50 g lipids 5) F/u BSS with ST prior to PO diet advancement 6) Continue MVM for wound healing 7) Routine bowel care Addendum: 02/17/21 at [address] Amended: Links added.
[2021-02-17 10:10] LABS: ALANINE AMINOTRANSFERASE 27 U/L (12-78); ALBUMIN 1.9 G/DL (3.4-5.0); ALBUMIN/GLOBULIN RATIO 0.5 (1.1-1.5); ALKALINE PHOSPHATASE 74 IU/L (46-116); ANION GAP 10 (8-16); ASPARTATE AMINO TRANSFERASE 26 U/L (10-37); BILIRUBIN,TOTAL 0.5 MG/DL (0.1-1.0); BLOOD UREA NITROGEN 51 MG/DL (7-18); C-REACTIVE PROTEIN 5.29 MG/DL (0.0-0.5); CALCIUM 7.9 MG/DL (8.5-10.1); CHLORIDE 110 MMOL/L (99-107); CREATININE 0.85 MG/DL (0.60-1.10); GLUCOSE 141 MG/DL (70-104); POTASSIUM 4.3 MMOL/L (3.5-5.1); SODIUM 142 MMOL/L (135-145); TOTAL CARBON DIOXIDE 21.6 MMOL/L (24-32); TOTAL PROTEIN 5.6 G/DL (6.4-8.2); eGFR 85 ML/MIN
[2021-02-17 11:06] LABS: OCCULT BLOOD STOOL POSITIVE (Neg)
[2021-02-17 11:21] VITALS: BP 106/53
--- NOTE | 2021-02-17 11:31 | NUR ---
Talked with Son Irving on the phone regarding having PEG placed. He states that is what he would still like it done. Will call back the son later for a 2 RN verbal consent.
[2021-02-17 14:00] VITALS: BP 120/50
--- NOTE | 2021-02-17 15:10 | NUR ---
Report given to Nathalia MIMS. Called patient's son Randy to inform him he will be transferred.
--- NOTE | 2021-02-17 15:35 | NUR ---
PAGER ID: [phone] MESSAGE: WE HAVE TRANSFER [phone] KATARZYNA TO [facility]. DO YOU WANT HIM ON TELE? NO ECTOPY FOR DAYS. OBIE U [id number]
--- NOTE | 2021-02-17 15:46 | NUR ---
Received report from FELICITA Hamm on [place] [facility]
[2021-02-17 16:00] VITALS: BP 108/51
--- NOTE | 2021-02-17 18:38 | NUR ---
Problems reprioritized. Patient report given,FELICITA Valdovinos questions answered & plan of care reviewed with .
--- NOTE | 2021-02-17 18:47 | NUR ---
Patient in room ORTHO 4009. I have received report from Jessy MIMS and had the opportunity to ask questions and assume patient care.
--- NOTE | 2021-02-17 18:50 | NUR ---
Patient's son called and asked for an update. The son was very insisting on coming to visit linda, educated on the visitor policy for the Covid floor. Patient's son seemed upset and not happy with nursing over the phone, Nursing supervisors number was given to the son.
[2021-02-17] MEDS: sennosides 8.6mg tablet PO SCH (20:15)
[2021-02-17] MEDS: Melatonin 3mg tablet PO SCH (20:15)
[2021-02-17] MEDS: carbidopa/levodopa 50/200mg CR tablet PO SCH (20:24)
[2021-02-17] MEDS: pantoprazole 40 MG vial IV SCH (20:31)
[2021-02-17] MEDS: latanoprost 0.005% 2.5ml ophthalmic drops EACHEYE SCH (20:36)
--- NOTE | 2021-02-17 21:29 | NUR ---
GI lab nurse, Michelle MIMS called regarding setting up his PEG placement for tomorrow. Went over his hospital stay with her and the speech therapist notes,and that he had been on PPN for nutrition, and that the son had declined to have a NG tube placed but wanted a PEG placed instead. Told her that he was guaiac positive today and that they had started him on iv push Protonix for this and no blood thinner due to this also. She said for the primary nurse to call her tonight if there was any issues regarding placing the PEG tube, I have her phone number for Aruna MIMS if needed. I also told Michelle MIMS that the son, Donta is POA for his dad and would need to be called for consent. The procedure most likely will be done in pt's room per bi nurse.
[2021-02-17 22:00] VITALS: BP 105/57
[2021-02-18] VITALS (11 sets, daily range): BP systolic 100–125; BP diastolic 51–74
--- NOTE | 2021-02-18 06:30 | NUR ---
Problems reprioritized. Patient report given, questions answered & plan of care reviewed with Martha MIMS.
[2021-02-18] MEDS: dexamethasone inj 6 MG in normal saline 50ml IV soln 50 ML IV SCH ×2 (07:18→21:34)
[2021-02-18] MEDS: pantoprazole 40 MG vial IV SCH (07:18)
[2021-02-18 07:42] LABS: BASOPHILS % (AUTO) 0 % (0-1); EOSINOPHILS % (AUTO) 0 % (0-6); HEMATOCRIT 26.5 % (42.0-52.0); LYMPHOCYTES # (AUTO) 0.7 X10'3 (1.1-4.8); LYMPHOCYTES % (AUTO) 4.8 % (21-51); MEAN CORPUSCULAR HEMOGLOBIN 30.7 PG (27.0-31.0); MEAN CORPUSCULAR HGB CONC 33.8 g/dL (33.0-36.5); MEAN CORPUSCULAR VOLUME 90.9 FL (78-98); MEAN PLATELET VOLUME 8.7 FL (7.4-10.4); MONOCYTES # (AUTO) 1.2 X10'3 (0-0.9); MONOCYTES % (AUTO) 8.8 % (2-12); NEUTROPHILS # (AUTO) 11.8 X10'3 (1.8-7.7); NEUTROPHILS % (AUTO) 86.4 % (42-75); PLATELET COUNT 393 X10'3 (140-440); RED BLOOD COUNT 2.92 X10'6 (4.70-6.10); RED CELL DISTRIBUTION WIDTH 14.9 % (11.5-14.5); WHITE BLOOD COUNT 13.6 X10'3 (4.5-11.0)
[2021-02-18] MEDS ORDERED: fentaNYL/PF 50MCG/1 ML 2ML syringe ONE (07:43)
[2021-02-18] MEDS ORDERED: MIDAZolam 1 MG/ML 5ML VIAL ONE (07:43)
[2021-02-18] MEDS ORDERED: LIDOcaine Viscous 15ml cup ONE (07:43)
[2021-02-18] MEDS: polyethylene glycol 3350 17gm powd pack PO SCH (08:00)
[2021-02-18] MEDS: fludrocortisone acetate 0.1mg tablet PO SCH (08:00)
[2021-02-18] MEDS: fluticasone nasal spray 16GM bottle NS SCH (08:00)
[2021-02-18] MEDS: ferrous sulfate 325mg tablet PO SCH (08:00)
[2021-02-18] MEDS: amiodarone 200mg tablet PO SCH ×2 (08:00→21:32)
[2021-02-18] MEDS: cholecalciferol (vitamin D3) 1,000 unit (25mcg) tablet PO SCH (08:00)
[2021-02-18] MEDS: docusate sod 250mg capsule PO SCH ×2 (08:00→20:00)
[2021-02-18] MEDS: lactobacillus rhamnosus 10,000 MMU CELLS/CAPSULE PO SCH ×2 (08:00→21:33)
[2021-02-18] MEDS: carbidoba-levodopa 25-100mg tablet PO SCH ×4 (08:00→21:32)
[2021-02-18] MEDS: K and/or MAG REPLACEMENT MC SCH ×4 (08:00→20:00)
[2021-02-18] MEDS: beta-carotene(A) w/C & E + minerals tab PO SCH ×2 (08:00→21:32)
[2021-02-18] MEDS ORDERED: ceFAZolin/D5W- 1GM premix 50 ML IV ONE (09:00)
--- NOTE | 2021-02-18 10:42 | NUR ---
pt back from procedure placing peg tube
--- NOTE | 2021-02-18 11:43 | NUR ---
Page Sent PAGER ID: [phone] MESSAGE: RE: JOIE COLÓN [phone] CAN I GET AN ORDER FOR NYSTATIN? PT HAS SOME REDNESS IN HIS GROIN. THANKS!
--- NOTE | 2021-02-18 11:56 | NUR ---
TF consult: PPN was discontinued 02/17 and pt remained NPO. Pt received PEG today and may be used for water and meds though feeding may start tomorrow per MD note. See TF recs below. LBM 02/17. Recommend f/u BSS with ST if Pt to advance diet along w/ PEG feedings. Will monitor for TF tolerance and adjust needs as medically indicated. Recommendations: 1) Continuous TF using Vital AF with goal rate of 60 mL/hr to provide 1440ml volume. 1728kcals, 108g protein, 1166ml H2O. To begin at 20 mL/hr and advance by 20 mL Q8H as tolerated to goal rate 2) Additional 100 mL water flush Q4H; monitor serum Na 3) Prealbumin q Friday/, daily scaled weights 4) F/u BSS with ST prior to PO diet advancement 5) Continue MVM for wound healing 6) Routine bowel care Addendum: 02/18/21 at [address] Amended: Links added.
[2021-02-18] MEDS: nystatin 15 GM powder TP SCH ×2 (13:19→21:48)
--- NOTE | 2021-02-18 18:15 | NUR ---
Problems reprioritized. Patient report given, questions answered & plan of care reviewed with FLEICITA MAGUIRE.
[2021-02-18] MEDS: sennosides 8.6mg tablet PO SCH (21:31)
[2021-02-18] MEDS: ciprofloxacin 250mg tablet PEG SCH (21:31)
[2021-02-18] MEDS: carbidopa/levodopa 50/200mg CR tablet PO SCH (21:32)
[2021-02-18] MEDS: Melatonin 3mg tablet PO SCH (21:32)
[2021-02-18] MEDS: latanoprost 0.005% 2.5ml ophthalmic drops EACHEYE SCH (21:48)
[2021-02-18] MEDS: neomy sulf/bacitrac zn/polymixin b oint 14.2 gm tube TP SCH (21:49)
[2021-02-19 01:55] VITALS: BP 98/53
[2021-02-19 06:00] VITALS: BP 105/57
--- NOTE | 2021-02-19 06:30 | NUR ---
Patient in room ORTHO 4009b. I have received report from FELICITA MAGUIRE and had the opportunity to ask questions and assume patient care.
--- NOTE | 2021-02-19 06:30 | NUR ---
Problems reprioritized. Patient report given, questions answered & plan of care reviewed with FELICITA YOUNG.
[2021-02-19] MEDS: polyethylene glycol 3350 17gm powd pack PO SCH (08:00)
[2021-02-19] MEDS: K and/or MAG REPLACEMENT MC SCH ×4 (08:00→20:00)
[2021-02-19] MEDS: docusate sod 250mg capsule PO SCH ×2 (08:00→20:00)
[2021-02-19] MEDS: fludrocortisone acetate 0.1mg tablet PO SCH (08:22)
[2021-02-19] MEDS: dexamethasone inj 6 MG in normal saline 50ml IV soln 50 ML IV SCH ×2 (08:22→22:29)
[2021-02-19] MEDS: carbidoba-levodopa 25-100mg tablet PO SCH ×4 (08:22→22:30)
[2021-02-19] MEDS: beta-carotene(A) w/C & E + minerals tab PO SCH ×2 (08:22→22:45)
[2021-02-19] MEDS: pantoprazole 40mg Tablet.DR PO SCH (08:22)
[2021-02-19] MEDS: ferrous sulfate 325mg tablet PO SCH (08:22)
[2021-02-19] MEDS: amiodarone 200mg tablet PO SCH ×2 (08:22→22:32)
[2021-02-19] MEDS: cholecalciferol (vitamin D3) 1,000 unit (25mcg) tablet PO SCH (08:22)
[2021-02-19] MEDS: lactobacillus rhamnosus 10,000 MMU CELLS/CAPSULE PO SCH ×2 (08:22→22:32)
[2021-02-19] MEDS: fluticasone nasal spray 16GM bottle NS SCH (08:23)
[2021-02-19 08:35] LABS: BASOPHILS % (AUTO) 0.1 % (0-1); EOSINOPHILS % (AUTO) 0 % (0-6); HEMATOCRIT 29.2 % (42.0-52.0); HEMOGLOBIN 9.7 g/dl (14.0-17.9); LYMPHOCYTES # (AUTO) 0.6 X10'3 (1.1-4.8); MEAN CORPUSCULAR HEMOGLOBIN 30.7 PG (27.0-31.0); MEAN CORPUSCULAR HGB CONC 33.1 g/dL (33.0-36.5); MEAN CORPUSCULAR VOLUME 92.8 FL (78-98); MONOCYTES % (AUTO) 8.5 % (2-12); NEUTROPHILS # (AUTO) 9.8 X10'3 (1.8-7.7); NEUTROPHILS % (AUTO) 86.4 % (42-75); PLATELET COUNT 447 X10'3 (140-440); RED BLOOD COUNT 3.15 X10'6 (4.70-6.10); RED CELL DISTRIBUTION WIDTH 15.1 % (11.5-14.5); WHITE BLOOD COUNT 11.3 X10'3 (4.5-11.0)
[2021-02-19] MEDS: nystatin 15 GM powder TP SCH ×3 (08:47→22:43)
[2021-02-19] MEDS: neomy sulf/bacitrac zn/polymixin b oint 14.2 gm tube TP SCH ×2 (08:48→20:00)
[2021-02-19 09:07] LABS: ALANINE AMINOTRANSFERASE 11 U/L (12-78); ALBUMIN 2.1 G/DL (3.4-5.0); ALBUMIN/GLOBULIN RATIO 0.5 (1.1-1.5); ALKALINE PHOSPHATASE 95 IU/L (46-116); ANION GAP 11 (8-16); ASPARTATE AMINO TRANSFERASE 23 U/L (10-37); BILIRUBIN,TOTAL 0.9 MG/DL (0.1-1.0); BLOOD UREA NITROGEN 39 MG/DL (7-18); BUN/CREATININE RATIO 48.1 (5.4-32.0); CALCIUM 8.4 MG/DL (8.5-10.1); CHLORIDE 109 MMOL/L (99-107); CREATININE 0.81 MG/DL (0.60-1.10); GLUCOSE 106 MG/DL (70-104); MAGNESIUM 2.2 MG/DL (1.5-2.4); PHOSPHORUS 3.8 MG/DL (2.3-4.5); POTASSIUM 4.4 MMOL/L (3.5-5.1); PREALBUMIN 16.4 MG/DL (19-36); SODIUM 141 MMOL/L (135-145); TOTAL CARBON DIOXIDE 21.5 MMOL/L (24-32); TRIGLYCERIDES 93 MG/DL (20-135); eGFR 90 ML/MIN
[2021-02-19 10:00] VITALS: BP 91/47
[2021-02-19] MEDS: ciprofloxacin 250mg tablet PEG SCH ×2 (10:27→22:31)
[2021-02-19 14:00] VITALS: BP 94/48
[2021-02-19] MEDS: traMADol 50MG tablet PO PRN (17:12)
--- NOTE | 2021-02-19 17:40 | NUR ---
RECOMMEND: 1. Daily bathing with no rinse skin cleanser. 2. Cream/Lotion to be applied to skin after bathing. 3. Alona care Q shift and prn soiling followed by with Barrier Cream. 4. Turn patient Q 1-2 hrs and reposition with pillows. 5. Float heels to offload pressure. 6. Hydrophylic foam to sacrum, left heel. To be changed by nursing Q5D.
[2021-02-19 18:00] VITALS: BP 111/54
--- NOTE | 2021-02-19 18:20 | NUR ---
Problems reprioritized. Patient report given, questions answered & plan of care reviewed with FELICITA MAGUIRE.
--- NOTE | 2021-02-19 19:54 | NUR ---
increased the feeding rate to 40ml/hr. no resudual. BS 107.
[2021-02-19 22:00] VITALS: BP 104/54
[2021-02-19] MEDS: sennosides 8.6mg tablet PO SCH (22:30)
[2021-02-19] MEDS: carbidopa/levodopa 50/200mg CR tablet PO SCH (22:30)
[2021-02-19] MEDS: Melatonin 3mg tablet PO SCH (22:31)
[2021-02-19] MEDS: latanoprost 0.005% 2.5ml ophthalmic drops EACHEYE SCH (22:44)
[2021-02-20 02:00] VITALS: BP 103/59
--- NOTE | 2021-02-20 04:00 | NUR ---
INCREASE TUBE FEEDING RATE TO 60ML/HR. NO RESIDUAL.
[2021-02-20 06:36] VITALS: BP 94/49
--- NOTE | 2021-02-20 06:36 | NUR ---
Patient in room ORTHO 4009. I have received report from Radha MIMS and had the opportunity to ask questions and assume patient care.
[2021-02-20] MEDS: docusate sod 250mg capsule PO SCH ×2 (08:00→20:00)
[2021-02-20] MEDS: K and/or MAG REPLACEMENT MC SCH ×4 (08:00→20:00)
[2021-02-20] MEDS: neomy sulf/bacitrac zn/polymixin b oint 14.2 gm tube TP SCH ×2 (08:00→20:00)
[2021-02-20] MEDS: dexamethasone inj 6 MG in normal saline 50ml IV soln 50 ML IV SCH ×2 (08:17→22:26)
[2021-02-20] MEDS: pantoprazole 40mg Tablet.DR PO SCH (08:18)
[2021-02-20] MEDS: carbidoba-levodopa 25-100mg tablet PO SCH ×4 (08:18→21:00)
[2021-02-20] MEDS: ferrous sulfate 325mg tablet PO SCH (08:18)
[2021-02-20] MEDS: lactobacillus rhamnosus 10,000 MMU CELLS/CAPSULE PO SCH ×2 (08:19→22:23)
[2021-02-20] MEDS: beta-carotene(A) w/C & E + minerals tab PO SCH ×2 (08:19→22:23)
[2021-02-20] MEDS: cholecalciferol (vitamin D3) 1,000 unit (25mcg) tablet PO SCH (08:19)
[2021-02-20] MEDS: amiodarone 200mg tablet PO SCH ×2 (08:19→22:23)
[2021-02-20] MEDS: polyethylene glycol 3350 17gm powd pack PO SCH (08:21)
[2021-02-20] MEDS: fluticasone nasal spray 16GM bottle NS SCH (11:42)
[2021-02-20] MEDS: fludrocortisone acetate 0.1mg tablet PO SCH (11:43)
[2021-02-20] MEDS: ciprofloxacin 250mg tablet PEG SCH ×2 (11:43→22:23)
[2021-02-20] MEDS: nystatin 15 GM powder TP SCH ×3 (13:00→21:00)
[2021-02-20 13:08] VITALS: BP 116/58
[2021-02-20 16:38] VITALS: BP 102/58
[2021-02-20] MEDS: traMADol 50MG tablet PO PRN (16:53)
--- NOTE | 2021-02-20 18:50 | NUR ---
Problems reprioritized. Patient report given, questions answered & plan of care reviewed with Beth MIMS.
[2021-02-20] MEDS: carbidopa/levodopa 50/200mg CR tablet PO SCH (21:00)
[2021-02-20] MEDS: latanoprost 0.005% 2.5ml ophthalmic drops EACHEYE SCH (21:00)
--- NOTE | 2021-02-20 21:55 | NUR ---
Called Pharmacy about the Sinemet as it says to do not crush and Pt is getting meds through PEG tube. She said to hold the med for tonight and she would talk to the Dr's about it.
[2021-02-20 22:00] VITALS: BP 116/62
[2021-02-20] MEDS: sennosides 8.6mg tablet PO SCH (22:22)
[2021-02-20] MEDS: Melatonin 3mg tablet PO SCH (22:23)
[2021-02-21 02:00] VITALS: BP 107/55
--- NOTE | 2021-02-21 06:18 | NUR ---
Problems reprioritized. Patient report given, questions answered & plan of care reviewed with Rosmery MIMS .
--- NOTE | 2021-02-21 06:21 | NUR ---
Patient in room ORTHO 4009. I have received report from Beth MIMS and had the opportunity to ask questions and assume patient care.
[2021-02-21 06:34] VITALS: BP 100/52
[2021-02-21] MEDS: neomy sulf/bacitrac zn/polymixin b oint 14.2 gm tube TP SCH (08:00)
[2021-02-21] MEDS: K and/or MAG REPLACEMENT MC SCH ×2 (08:00)
[2021-02-21] MEDS ORDERED: docusate sodium 100mg/10ml UD cup PO SCH (08:00)
[2021-02-21] MEDS: nystatin 15 GM powder TP SCH ×2 (08:00→13:05)
[2021-02-21] MEDS: dexamethasone inj 6 MG in normal saline 50ml IV soln 50 ML IV SCH (08:47)
[2021-02-21] MEDS: cholecalciferol (vitamin D3) 1,000 unit (25mcg) tablet PO SCH (08:48)
[2021-02-21] MEDS: ferrous sulfate 325mg tablet PO SCH (08:48)
[2021-02-21] MEDS: pantoprazole 40mg Tablet.DR PO SCH (08:48)
[2021-02-21] MEDS: beta-carotene(A) w/C & E + minerals tab PO SCH (08:48)
[2021-02-21] MEDS: lactobacillus rhamnosus 10,000 MMU CELLS/CAPSULE PO SCH (08:48)
[2021-02-21] MEDS: amiodarone 200mg tablet PO SCH (08:49)
[2021-02-21] MEDS: polyethylene glycol 3350 17gm powd pack PO SCH (08:49)
[2021-02-21] MEDS: fludrocortisone acetate 0.1mg tablet PO SCH (08:49)
[2021-02-21] MEDS: carbidoba-levodopa 25-100mg tablet PO SCH ×2 (08:49→13:05)
[2021-02-21] MEDS: fluticasone nasal spray 16GM bottle NS SCH (08:49)
[2021-02-21] MEDS: ciprofloxacin 250mg tablet PEG SCH (10:48)
[2021-02-21 12:27] VITALS: BP 104/56
--- NOTE | 2021-02-21 15:24 | NUR ---
Called report to Jade at [facility].
--- NOTE | 2021-02-21 16:57 | NUR ---
20 gauge iv removed from right ac, cannula intact no s/s of phlebitis. Patient discharged to [facility], report called to Jade. Randy son is aware of patients discharge plan. He was sent with 2 bottle of vital AF tube feed per [facility] request. Patient was changed and new condom cath applied before discharge also.
[2021-02-21] MEDS ORDERED: carbidoba-levodopa 25-100mg tablet PO SCH (21:00)
--- NOTE | 2021-02-23 09:30 | NUR ---
pharmacy paged. "good morning, i am unable to locate the cefazolin dose for 0800. -Rosanna Clayton" Will administer abo when dose available.
== END 2021-02-21 17:17 | DRG 521 ==
LOC: ER 12:24 → ED HOLD 13:49 → ORTHO 4S 16:24 → PCU 3S 02-02 19:15 → ORTHO 4S 02-17 16:49
PROVIDERS: ADMIT Family Medicine; ATTEND Family Medicine
PROC: 0SRS0JZ Replacement of Left Hip Joint, Femoral Surface with Synthetic Substitute, Open Approach (ICD-10-PCS; principal; 2021-02-01 07:30)
PROC: XW033E5 Introduction of Remdesivir Anti-infective into Peripheral Vein, Percutaneous Approach, New Technology Group 5 (ICD-10-PCS; 2021-02-12)
PROC: 30233N1 Transfusion of Nonautologous Red Blood Cells into Peripheral Vein, Percutaneous Approach (ICD-10-PCS; 2021-02-15)
PROC: 0DH63UZ Insertion of Feeding Device into Stomach, Percutaneous Approach (ICD-10-PCS; 2021-02-18)
DX: S72.012A Unspecified intracapsular fracture of left femur, initial encounter for closed fracture (principal); G93.41 Metabolic encephalopathy; U07.1 COVID-19; J12.82 Pneumonia due to coronavirus disease 2019; E43 Unspecified severe protein-calorie malnutrition; K92.2 Gastrointestinal hemorrhage, unspecified; D68.69 Other thrombophilia; J44.0 Chronic obstructive pulmonary disease with (acute) lower respiratory infection; N17.9 Acute kidney failure, unspecified; Z66 Do not resuscitate; F02.80 Dementia in other diseases classified elsewhere, unspecified severity, without behavioral disturbance, psychotic disturbance, mood disturbance, and anxiety; F17.210 Nicotine dependence, cigarettes, uncomplicated; R13.10 Dysphagia, unspecified; I48.0 Paroxysmal atrial fibrillation; E87.6 Hypokalemia; G20 Parkinson's disease; Z96.652 Presence of left artificial knee joint; I95.9 Hypotension, unspecified; D50.0 Iron deficiency anemia secondary to blood loss (chronic); W01.0XXA Fall on same level from slipping, tripping and stumbling without subsequent striking against object, initial encounter; Z98.1 Arthrodesis status; Z68.24 Body mass index [BMI] 24.0-24.9, adult; Y93.89 Activity, other specified; Y92.098 Other place in other non-institutional residence as the place of occurrence of the external cause; Y99.8 Other external cause status; Z79.899 Other long term (current) drug therapy; Z71.6 Tobacco abuse counseling
CPT/HCPCS: 36415; 36430; 43246; 71045; 73502; 80048; 80053; 81003; 82272; 82948; 83605; 83735; 84100; 84132; 84134; 84443; 84478; 85025; 85379; 85610; 86140; 86885; 86900; 86901; 86920; 87040; 87081; 87635; 92508; 92616; 93005; 94640; 94760; 97110; 97112; 97161; 97530; 99152; 99153; 99285; A4618; A4620; A6454; A7000; A9272; C1776; C9113; G0378; J0456; J0690; J1100; J1160; J1170; J1650; J1940; J1956; J2001; J2175; J2250; J2270; J2370; J2405; J2704; J2710; J3010; J3490; J7030; J7040; J7060; J7120; J7626; P9016; P9045; U0003; U0005